=== PATIENT | male | born 1995 | race African-American/Black ===

== ENCOUNTER 2018-03-19 13:57 | Emergency (ER) | payer OTHER ==
[2018-03-19] MEDS ORDERED: NS 0.9% 1000 ML* 2,000 ML IV ONE (14:44)
[2018-03-19 14:57] LABS: ABS Basophils 0 10^3/ul (0-0.2); ABS Eosinophils 0 10^3/ul (0-0.6); ABS Monocytes 0.8 10^3/ul (0-0.8); ABS Neutrophils 8.3 10^3/ul (1.5-7.7); ABS Nucleated RBC 0 10^3/ul; Eosinophil % 0.2 % (0-6); Hematocrit 44 % (42-52); Hemoglobin 14.9 g/dl (14.0-18.0); Lymphocyte % 17.6 % (25-47); Mean Corpuscular HGB Conc 34 g/dl (31-36); Mean Corpuscular Hemoglobin 30 pg (27-31); Mean Corpuscular Volume 89 fL (80-94); Mean Platelet Volume 8.6 um3 (7.4-10.4); Nucleated Red Blood Cells % 0; Platelet Count 247 10^3/ul (150-450); Red Blood Count 4.98 10^6/ul (4.0-5.4); Red Cell Distribution Width 13 % (10.5-15); White Blood Count 11.2 10^3/ul (3.5-10.8)
--- NOTE | 2018-03-19 15:04 | RAD ---
INDICATION: Chest tightness. COMPARISON: There are no prior studies available for comparison. TECHNIQUE: A portable view of the chest was obtained. FINDINGS: Cardiac and mediastinal contours appear to be within normal limits. The lungs are clear. No pleural effusion or pneumothorax is seen. IMPRESSION: NO EVIDENCE FOR ACUTE DISEASE.
[2018-03-19 15:08] LABS: INR 1.02 (0.77-1.02)
[2018-03-19 15:24] LABS: EGFR Non-African American 102.3 (>60)
[2018-03-19 16:09] LABS: Urine Appearance Clear; Urine Blood Negative (Negative); Urine Color Yellow; Urine Ketones Negative (Negative); Urine Protein Negative (Negative); Urine Specific Gravity 1.023 (1.010-1.030); Urine Urobilinogen Negative (Negative)
--- NOTE | 2018-03-19 17:32 | ED ---
Louise Kwon Gabriel, scribed for Dano Regalado MD on 03/19/18 at 1442 . Substance Abuse/Use - HPI Summary HPI Summary: This patient is a 22 year old M BIBA to [facility] s/p K2 overdose that occurred at 0700 this morning. Pt is accompanied by guards. The patient rates the pain 3/10 in severity. Patient reports muscle spasms, weakness, left knee pain, tremors on movement, and chest pain. Pt states he current feels better than this morning , when he was seen in the clinic earlier today he had very little responsiveness. - History Of Current Complaint Chief Complaint: EDOverdose Stated Complaint: OVERDOSE Time Seen by Provider: 03/19/18 14:19 Hx Obtained From: Patient, Other: - guards Onset/Duration of Drug/ETOH Abuse: Hours Ingestion History: Type/Name Of Drug - K2 Overdose Characteristics: Inhalation Timing Of Abuse: Binge Use Severity Initially: Severe Severity Currently: Moderate Character: Stuporous Associated Signs And Symptoms: Other: - muscle spasms, weakness, left knee pain , tremors on movement, and chest pain. - Allergies/Home Medications Allergies/Adverse Reactions: Allergies Allergy/AdvReac Type Severity Reaction Status Date / Time No Known Allergies Allergy Verified 03/19/18 14:11 Home Medications: Home Medications NK [No Home Medications Reported] 03/19/18 [History Confirmed 03/19/18] PMH/Surg Hx/FS Hx/Imm Hx Cardiovascular History: Denies: Hx Angina, Hx Angioplasty, Hx Atrial Fibrillation, Hx Auto Implanted Cardiovert Defib Respiratory History: Denies: Hx Bronchopulmonary Dysplasia, Hx Chronic Bronchitis, Hx Chronic Obstructive Pulmonary Disease (COPD), Hx Cystic Fibrosis GI History: Denies: Hx Cirrhosis, Hx Crohn's Disease, Hx Diverticulosis History: Denies: Hx Acute Renal Failure, Hx Benign Prostatic Hyperplasia Musculoskeletal History: Denies: Hx Arthritis, Hx Rheumatoid Arthritis Psychiatric History: Reports: Hx Substance Abuse Infectious Disease History: No Infectious Disease History: Denies: Traveled Outside the [place] in Last 30 Days - Family History Known Family History: Positive: Hypertension, Diabetes Negative: Respiratory Disease, Seizure Disorder - Social History Occupation: Unemployed Lives: Dormitory/Roommates - [facility] Alcohol Use: Rare Hx Substance Use: Yes Substance Use Type: Reports: Synthetic Drugs Hx Tobacco Use: No Smoking Status (MU): Never Smoked Tobacco Review of Systems Positive: Chest Pain Positive: Other - left knee pain Neurological: Other - muscle spasms and tremors on movement Positive: Weakness Psychological: Other All Other Systems Reviewed And Are Negative: Yes Physical Exam - Summary Physical Exam Summary: General: well-appearing, no pain distress ,awake Skin: warm, color reflects adequate perfusion, dry Head: normal Eyes: EOMI, GUADALUPE ENT: normal Neck: supple, nontender Respiratory: CTA, breath sounds present Cardiovascular: RRR Abdomen: soft, nontender Bowel: present Musculoskeletal: tremulous when moving LE, TTP in medial left patella Neurological: normal, sensory/motor intact, A&O x3 Psychological: affect/mood appropriate Triage Information Reviewed: Yes Vital Signs On Initial Exam: Initial Vitals Temp Pulse Resp BP Pulse Ox 99.2 F 102 20 133/75 97 03/19/18 14:11 03/19/18 14:11 03/19/18 14:11 03/19/18 14:11 03/19/18 14:11 Vital Signs Reviewed: Yes Diagnostics - Vital Signs Vital Signs Temp Pulse Resp BP Pulse Ox 03/19/18 14:11 99.2 F 102 20 133/75 97 - Laboratory Lab Results: Lab Results 03/19/18 03/19/18 03/19/18 Range/Units 14:45 14:45 14:45 WBC 11.2 H (3.5-10.8) 10^3/ul RBC 4.98 (4.0-5.4) 10^6/ul Hgb 14.9 (14.0-18.0) g/dl Hct 44 (42-52) % MCV 89 (80-94) fL MCH 30 (27-31) pg MCHC 34 (31-36) g/dl RDW 13 (10.5-15) % Plt Count 247 (150-450) 10^3/ul MPV 8.6 (7.4-10.4) um3 Neut % (Auto) 74.2 (38-83) % Lymph % (Auto) 17.6 L (25-47) % Carlisle % (Auto) 7.6 H (0-7) % Eos % (Auto) 0.2 (0-6) % Baso % (Auto) 0.4 (0-2) % Absolute Neuts (auto) 8.3 H (1.5-7.7) 10^3/ul Absolute Lymphs (auto) 2.0 (1.0-4.8) 10^3/ul Absolute Monos (auto) 0.8 (0-0.8) 10^3/ul Absolute Eos (auto) 0 (0-0.6) 10^3/ul Absolute Basos (auto) 0 (0-0.2) 10^3/ul Absolute Nucleated RBC 0 10^3/ul Nucleated RBC % 0 INR (Anticoag Therapy) 1.02 (0.77-1.02) APTT 28.2 (26.0-36.3) seconds Sodium 139 (139-145) mmol/L Potassium 3.8 (3.5-5.0) mmol/L Chloride 104 (101-111) mmol/L Carbon Dioxide 24 (22-32) mmol/L Anion Gap 11 (2-11) mmol/L BUN 10 (6-24) mg/dL Creatinine 0.94 (0.67-1.17) mg/dL Est GFR ( Amer) 131.6 (>60) Est GFR (Non-Af Amer) 102.3 (>60) BUN/Creatinine Ratio 10.6 (8-20) Glucose 98 (70-100) mg/dL Lactic Acid (0.5-2.0) mmol/L Calcium 9.6 (8.6-10.3) mg/dL Magnesium 2.0 (1.9-2.7) mg/dL Total Bilirubin 0.70 (0.2-1.0) mg/dL AST 14 (13-39) U/L ALT 12 (7-52) U/L Alkaline Phosphatase 61 (34-104) U/L Total Creatine Kinase 98 (10-223) U/L CK-MB (CK-2) 2.5 (0.6-6.3) ng/mL Troponin I 0.00 (<0.04) ng/mL C-Reactive Protein < 1.00 (< 5.00) mg/L Total Protein 7.3 (6.4-8.9) g/dL Albumin 4.6 (3.2-5.2) g/dL Globulin 2.7 (2-4) g/dL Albumin/Globulin Ratio 1.7 (1-3) Lipase 24 (11.0-82.0) U/L TSH 3.21 (0.34-5.60) mcIU/mL Urine Color Urine Appearance Urine pH (5-9) Ur Specific [place] (1.010-1.030) Urine Protein (Negative) Urine Ketones (Negative) Urine Blood (Negative) Urine Nitrate (Negative) Urine Bilirubin (Negative) Urine Urobilinogen (Negative) Ur Leukocyte Esterase (Negative) Urine Glucose (Negative) Salicylates < 2.50 (<30) mg/dL Urine Opiates Screen (None Detect) Acetaminophen < 15 mcg/mL Ur Barbiturates Screen (None Detect) Ur Phencyclidine Scrn (None Detect) Ur Amphetamines Screen (None Detect) U Benzodiazepines Scrn (None Detect) Urine Cocaine Screen (None Detect) U Cannabinoids Screen (None Detect) Serum Alcohol < 10 (<10) mg/dL 03/19/18 03/19/18 03/19/18 Range/Units 14:45 15:52 15:52 WBC (3.5-10.8) 10^3/ul RBC (4.0-5.4) 10^6/ul Hgb (14.0-18.0) g/dl Hct (42-52) % MCV (80-94) fL MCH (27-31) pg MCHC (31-36) g/dl RDW (10.5-15) % Plt Count (150-450) 10^3/ul MPV (7.4-10.4) um3 Neut % (Auto) (38-83) % Lymph % (Auto) (25-47) % Carlisle % (Auto) (0-7) % Eos % (Auto) (0-6) % Baso % (Auto) (0-2) % Absolute Neuts (auto) (1.5-7.7) 10^3/ul Absolute Lymphs (auto) (1.0-4.8) 10^3/ul Absolute Monos (auto) (0-0.8) 10^3/ul Absolute Eos (auto) (0-0.6) 10^3/ul Absolute Basos (auto) (0-0.2) 10^3/ul Absolute Nucleated RBC 10^3/ul Nucleated RBC % INR (Anticoag Therapy) (0.77-1.02) APTT (26.0-36.3) seconds Sodium (139-145) mmol/L Potassium (3.5-5.0) mmol/L Chloride (101-111) mmol/L Carbon Dioxide (22-32) mmol/L Anion Gap (2-11) mmol/L BUN (6-24) mg/dL Creatinine (0.67-1.17) mg/dL Est GFR ( Amer) (>60) Est GFR (Non-Af Amer) (>60) BUN/Creatinine Ratio (8-20) Glucose (70-100) mg/dL Lactic Acid 1.3 (0.5-2.0) mmol/L Calcium (8.6-10.3) mg/dL Magnesium (1.9-2.7) mg/dL Total Bilirubin (0.2-1.0) mg/dL AST (13-39) U/L ALT (7-52) U/L Alkaline Phosphatase (34-104) U/L Total Creatine Kinase (10-223) U/L CK-MB (CK-2) (0.6-6.3) ng/mL Troponin I (<0.04) ng/mL C-Reactive Protein (< 5.00) mg/L Total Protein (6.4-8.9) g/dL Albumin (3.2-5.2) g/dL Globulin (2-4) g/dL Albumin/Globulin Ratio (1-3) Lipase (11.0-82.0) U/L TSH (0.34-5.60) mcIU/mL Urine Color Yellow Urine Appearance Clear Urine pH 7.0 (5-9) Ur Specific [place] 1.023 (1.010-1.030) Urine Protein Negative (Negative) Urine Ketones Negative (Negative) Urine Blood Negative (Negative) Urine Nitrate Negative (Negative) Urine Bilirubin Negative (Negative) Urine Urobilinogen Negative (Negative) Ur Leukocyte Esterase Negative (Negative) Urine Glucose Negative (Negative) Salicylates (<30) mg/dL Urine Opiates Screen None detected (None Detect) Acetaminophen mcg/mL Ur Barbiturates Screen None detected (None Detect) Ur Phencyclidine Scrn None detected (None Detect) Ur Amphetamines Screen None detected (None Detect) U Benzodiazepines Scrn None detected (None Detect) Urine Cocaine Screen None detected (None Detect) U Cannabinoids Screen None detected (None Detect) Serum Alcohol (<10) mg/dL Result Diagrams: 03/19/18 14:45 03/19/18 14:45 Lab Statement: Any lab studies that have been ordered have been reviewed, and results considered in the medical decision making process. - Radiology CXR Radiology Interpretation Completed By: Radiologist - , no evidence for acute disease ED physician has reviewed this radiology report. - EKG 14:56 Cardiac Rate: NL EKG Rhythm: Sinus Rhythm - at 81 BPM Ectopy: None EKG Interpretation: ST elevations probable early repolarization Course/Dx - Course Course Of Treatment: IMPROVED IN ED. DISCUSSED RESULTS WITH THE PATIENT. DISCHARGE BACK TO [facility], STABLE. RETURN IF WORSE. - Diagnoses Provider Diagnoses: Substance abuse Discharge - Sign-Out/Discharge Documenting (check all that apply): Discharge - Discharge Plan Condition: Stable Disposition: HOME Patient Education Materials: Cannabis Abuse (ED) Referrals: Earlene DOUGLASS,Kesha Serna [Primary Care Provider] - Additional Instructions: FOLLOW UP WITH YOUR DOCTOR. RETURN TO THE EMERGENCY DEPARTMENT FOR ANY WORSENING OF YOUR CONDITION OR QUESTIONS OR CONCERNS. - Billing Disposition and Condition Condition: STABLE Disposition: HOME The documentation as recorded by the Louise foss Gabriel accurately reflects the service I personally performed and the decisions made by me, Dano Regalado MD.
[2018-03-19 17:46] VITALS: BP 109/60
== END 2018-03-19 17:45 | disposition home or self-care (01) ==
LOC: ED 13:57
DX: F19.10 Other psychoactive substance abuse, uncomplicated (principal); R53.1 Weakness; M25.562 Pain in left knee; R07.9 Chest pain, unspecified
CPT/HCPCS: 36415; 71045; 80053; 80307; 80320; 80329; 81003; 82550; 82553; 83605; 83690; 83735; 84443; 84484; 85025; 85610; 85730; 86140; 93005; 96360; 99284; G0480

== ENCOUNTER 2018-03-22 14:01 | Inpatient (IN) | payer OTHER ==
[2018-03-22] MEDS ORDERED: Acetaminophen TAB* 325 MG PO ONE (16:00)
--- NOTE | 2018-03-22 16:19 | ED ---
Neurological HPI - HPI Summary HPI Summary: Patient is a 22-year-old male presenting from [address] [place] [address] with a possible K to overdose. He was seen 3 days ago in the ED for K2 overdose. Note below: This patient is a 22 year old M BIBA to [facility] s/p K2 overdose that occurred at 0700 this morning. Pt is accompanied by guards. The patient rates the pain 3/10 in severity. Patient reports muscle spasms, weakness, left knee pain, tremors on movement, and chest pain. Pt states he current feels better than this morning , when he was seen in the clinic earlier today he had very little responsiveness. Today he returns, brought in by ambulance with guards at bedside for continuing similar complaint of tremors, left upper leg pain and headache. He denies any K2 ingestion on this date. He has never had any of these symptoms prior to 3 days ago. Patient is a poor historian. Denies chest pain, shortness of breath. Headache is located in the frontal/parietal area in the most superior portion of his head. He denies any trauma. Headache is not worst of life. He describes the pain as an aching. Endorses upper leg pain but is unable to describe this. He continues to spasm throughout questioning. No known history of seizure activity. He has not taken any medication for relief. Denies any abdominal pain, nausea, vomiting, diarrhea. - History of Current Complaint Hx Obtained From: Patient Onset/Duration: Sudden Onset Timing: Constant Onset Severity: Moderate Current Severity: Moderate Seizure Severity: Moderate Neurological Deficit Location: Generalized Headache Location: Parietal (Right) Pain Intensity: 7 Pain Scale Used: 0-10 Numeric Character: Unable To Describe Alleviating: Rest Associated Signs and Symptoms: Positive: Decreased Level of Consciousness, Decreased Oral Intake. Negative: Tinnitus, Unsteady Gait, Confusion, Agitation , Loss of Consciousness, Impaired Speech, Numbness, Lightheadness, Neck Pain/ Stiffness, Chest Pain, Shortness of Breath TPA Considered: No <Allison Rosa - Last Filed: 03/22/18 16:27> <Jimbo Williamson - Last Filed: 03/23/18 02:35> - History of Current Complaint Chief Complaint: EDSubstanceAbuse Stated Complaint: OVERDOSE Time Seen by Provider: 03/22/18 14:09 - Allergy/Home Medications Allergies/Adverse Reactions: Allergies Allergy/AdvReac Type Severity Reaction Status Date / Time No Known Allergies Allergy Verified 03/19/18 14:11 PMH/Surg Hx/FS Hx/Imm Hx Previously Healthy: Yes Cardiovascular History: Reports: Other Cardiovascular Problems/Disorders - VALVUE PROBLEM Denies: Hx Angina, Hx Angioplasty, Hx Atrial Fibrillation, Hx Auto Implanted Cardiovert Defib Respiratory History: Denies: Hx Bronchopulmonary Dysplasia, Hx Chronic Bronchitis, Hx Chronic Obstructive Pulmonary Disease (COPD), Hx Cystic Fibrosis GI History: Denies: Hx Cirrhosis, Hx Crohn's Disease, Hx Diverticulosis History: Denies: Hx Acute Renal Failure, Hx Benign Prostatic Hyperplasia Musculoskeletal History: Denies: Hx Arthritis, Hx Rheumatoid Arthritis Psychiatric History: Reports: Hx Substance Abuse - Immunization History Hx Pertussis Vaccination: No Immunizations Up to Date: Unable to Obtain/Confirm Infectious Disease History: Yes Infectious Disease History: Denies: Traveled Outside the [place] in Last 30 Days - Family History Known Family History: Positive: Hypertension, Diabetes Negative: Respiratory Disease, Seizure Disorder - Social History Occupation: Unemployed Lives: [facility] Alcohol Use: Rare Hx Substance Use: Yes Substance Use Type: Reports: Synthetic Drugs Hx Tobacco Use: No Smoking Status (MU): Never Smoked Tobacco <Allison Rosa - Last Filed: 03/22/18 16:27> Review of Systems Constitutional: Negative Negative: Fever, Chills, Fatigue, Skin Diaphoresis Eyes: Negative Negative: Epistaxis, Dental Pain, Sore Throat, Ear Ache Negative: Palpitations, Chest Pain Negative: Shortness Of Breath, Cough Negative: Abdominal Pain, Vomiting, Diarrhea, Nausea Genitourinary: Negative Positive: no symptoms reported, see HPI Musculoskeletal: Negative Neurological: Other - tremors Positive: Headache. Negative: Weakness, Paresthesia, Numbness Psychological: Normal All Other Systems Reviewed And Are Negative: Yes <Allison Rosa - Last Filed: 03/22/18 16:27> Physical Exam Triage Information Reviewed: Yes Vital Signs On Initial Exam: Initial Vitals Pulse Resp BP Pulse Ox 87 13 128/73 98 03/22/18 14:12 03/22/18 14:12 03/22/18 14:12 03/22/18 14:12 Vital Signs Reviewed: Yes Appearance: Positive: Well-Appearing, Well-Nourished Skin: Positive: Warm, Skin Color Reflects Adequate Perfusion Head/Face: Positive: Normal Head/Face Inspection Eyes: Positive: EOMI, GUADALUPE, Conjunctiva Clear Neck: Positive: Supple, No Lymphadenopathy Respiratory/Lung Sounds: Positive: Clear to Auscultation, Breath Sounds Present Cardiovascular: Positive: RRR, Pulses are Symmetrical in both Upper and Lower Extremities Musculoskeletal: Positive: Normal, Strength/ROM Intact Neurological: Positive: Sensory/Motor Intact, Normal Gait - Not assessed, Unable to Assess Gait, Speech Normal. Negative: Receptive Aphasia, Expressive Aphasia, Facial Droop Psychiatric: Positive: Normal, Affect/Mood Appropriate AVPU Assessment: Alert <Allison Rosa - Last Filed: 03/22/18 16:27> Vital Signs On Initial Exam: Initial Vitals Pulse Resp BP Pulse Ox 87 13 128/73 98 03/22/18 14:12 03/22/18 14:12 03/22/18 14:12 03/22/18 14:12 <Jimbo Williamson - Last Filed: 03/23/18 02:35> Diagnostics - Vital Signs Vital Signs Temp Pulse Resp BP Pulse Ox 03/22/18 15:19 77 34 136/67 98 03/22/18 15:04 76 23 131/73 98 03/22/18 15:00 71 20 96 03/22/18 14:49 91 11 138/84 98 03/22/18 14:34 81 20 138/75 96 03/22/18 14:20 109 21 115/92 99 03/22/18 14:19 99.2 F 102 22 115/92 98 03/22/18 14:12 87 13 128/73 98 - Laboratory Lab Results: Lab Results 03/22/18 Range/Units 14:50 Troponin I 0.00 (<0.04) ng/mL Lab Statement: Any lab studies that have been ordered have been reviewed, and results considered in the medical decision making process. <Allison Rosa - Last Filed: 03/22/18 16:27> - Vital Signs Vital Signs Temp Pulse Resp BP Pulse Ox 03/22/18 18:04 16 112/75 03/22/18 18:00 18 03/22/18 17:49 13 125/71 03/22/18 17:37 13 03/22/18 17:34 79 10 116/65 97 03/22/18 17:19 84 13 110/61 98 03/22/18 17:04 77 19 122/59 95 03/22/18 17:00 84 15 96 03/22/18 16:49 35 146/79 03/22/18 16:34 71 13 131/69 95 03/22/18 16:04 88 22 150/88 99 03/22/18 16:00 81 15 97 03/22/18 15:49 84 11 111/77 98 03/22/18 15:34 80 13 135/70 96 03/22/18 15:19 77 34 136/67 98 03/22/18 15:04 76 23 131/73 98 03/22/18 15:00 71 20 96 03/22/18 14:49 91 11 138/84 98 03/22/18 14:34 81 20 138/75 96 03/22/18 14:20 109 21 115/92 99 03/22/18 14:19 99.2 F 102 22 115/92 98 03/22/18 14:12 87 13 128/73 98 - Laboratory Lab Results: Lab Results 03/22/18 03/22/18 03/22/18 Range/Units 14:50 16:04 16:04 WBC 10.5 (3.5-10.8) 10^3/ul RBC 4.91 (4.0-5.4) 10^6/ul Hgb 14.7 (14.0-18.0) g/dl Hct 44 (42-52) % MCV 90 (80-94) fL MCH 30 (27-31) pg MCHC 34 (31-36) g/dl RDW 13 (10.5-15) % Plt Count 265 (150-450) 10^3/ul MPV 8.9 (7.4-10.4) um3 Neut % (Auto) 69.6 (38-83) % Lymph % (Auto) 21.6 L (25-47) % Irwin % (Auto) 7.9 H (0-7) % Eos % (Auto) 0.5 (0-6) % Baso % (Auto) 0.4 (0-2) % Absolute Neuts (auto) 7.3 (1.5-7.7) 10^3/ul Absolute Lymphs (auto) 2.3 (1.0-4.8) 10^3/ul Absolute Monos (auto) 0.8 (0-0.8) 10^3/ul Absolute Eos (auto) 0.1 (0-0.6) 10^3/ul Absolute Basos (auto) 0 (0-0.2) 10^3/ul Absolute Nucleated RBC 0 10^3/ul Nucleated RBC % 0.1 ESR 3 (0-14) mm/Hr Sodium 143 (139-145) mmol/L Potassium 4.0 (3.5-5.0) mmol/L Chloride 109 (101-111) mmol/L Carbon Dioxide 23 (22-32) mmol/L Anion Gap 11 (2-11) mmol/L BUN 13 (6-24) mg/dL Creatinine 0.95 (0.67-1.17) mg/dL Est GFR ( Amer) 130.0 (>60) Est GFR (Non-Af Amer) 101.1 (>60) BUN/Creatinine Ratio 13.7 (8-20) Glucose 86 (70-100) mg/dL Lactic Acid (0.5-2.0) mmol/L Calcium 9.7 (8.6-10.3) mg/dL Total Bilirubin 1.20 H (0.2-1.0) mg/dL AST 11 L (13-39) U/L ALT 9 (7-52) U/L Alkaline Phosphatase 57 (34-104) U/L Total Creatine Kinase 102 (10-223) U/L Myoglobin 21.4 (17.4-105.7) ng/mL Troponin I 0.00 (<0.04) ng/mL C-Reactive Protein < 1.00 (< 5.00) mg/L Total Protein 7.2 (6.4-8.9) g/dL Albumin 4.5 (3.2-5.2) g/dL Globulin 2.7 (2-4) g/dL Albumin/Globulin Ratio 1.7 (1-3) Urine Color Urine Appearance Urine pH (5-9) Ur Specific [place] (1.010-1.030) Urine Protein (Negative) Urine Ketones (Negative) Urine Blood (Negative) Urine Nitrate (Negative) Urine Bilirubin (Negative) Urine Urobilinogen (Negative) Ur Leukocyte Esterase (Negative) Urine Glucose (Negative) 03/22/18 03/22/18 Range/Units 16:04 17:32 WBC (3.5-10.8) 10^3/ul RBC (4.0-5.4) 10^6/ul Hgb (14.0-18.0) g/dl Hct (42-52) % MCV (80-94) fL MCH (27-31) pg MCHC (31-36) g/dl RDW (10.5-15) % Plt Count (150-450) 10^3/ul MPV (7.4-10.4) um3 Neut % (Auto) (38-83) % Lymph % (Auto) (25-47) % Irwin % (Auto) (0-7) % Eos % (Auto) (0-6) % Baso % (Auto) (0-2) % Absolute Neuts (auto) (1.5-7.7) 10^3/ul Absolute Lymphs (auto) (1.0-4.8) 10^3/ul Absolute Monos (auto) (0-0.8) 10^3/ul Absolute Eos (auto) (0-0.6) 10^3/ul Absolute Basos (auto) (0-0.2) 10^3/ul Absolute Nucleated RBC 10^3/ul Nucleated RBC % ESR (0-14) mm/Hr Sodium (139-145) mmol/L Potassium (3.5-5.0) mmol/L Chloride (101-111) mmol/L Carbon Dioxide (22-32) mmol/L Anion Gap (2-11) mmol/L BUN (6-24) mg/dL Creatinine (0.67-1.17) mg/dL Est GFR ( Amer) (>60) Est GFR (Non-Af Amer) (>60) BUN/Creatinine Ratio (8-20) Glucose (70-100) mg/dL Lactic Acid 1.3 (0.5-2.0) mmol/L Calcium (8.6-10.3) mg/dL Total Bilirubin (0.2-1.0) mg/dL AST (13-39) U/L ALT (7-52) U/L Alkaline Phosphatase (34-104) U/L Total Creatine Kinase (10-223) U/L Myoglobin (17.4-105.7) ng/mL Troponin I (<0.04) ng/mL C-Reactive Protein (< 5.00) mg/L Total Protein (6.4-8.9) g/dL Albumin (3.2-5.2) g/dL Globulin (2-4) g/dL Albumin/Globulin Ratio (1-3) Urine Color Yellow Urine Appearance Clear Urine pH 6.0 (5-9) Ur Specific [place] 1.023 (1.010-1.030) Urine Protein Negative (Negative) Urine Ketones 1+ A (Negative) Urine Blood Negative (Negative) Urine Nitrate Negative (Negative) Urine Bilirubin Negative (Negative) Urine Urobilinogen Negative (Negative) Ur Leukocyte Esterase Negative (Negative) Urine Glucose Negative (Negative) Result Diagrams: 03/22/18 16:04 03/22/18 16:04 Lab Statement: Any lab studies that have been ordered have been reviewed, and results considered in the medical decision making process. <Jimbo Williamson - Last Filed: 03/23/18 02:35> Re-Evaluation - Re-Evaluation 1 Re-Evaluation Time: 18:22 - over Comment: 40 minutes S/P 1 mg Ativan PO: Patient still having intermittent tremors, no decline in symptoms. Patient alert, oriented, answers questions appropriately. No obvious distress. discussed pt case with dr ware neuro who recommended giving ativan 2mg iv. 2 Re-Evaluation Time: 19:44 Change: Improved Comment: Decreased frequency of intermittent tremors S/P Ativan 2mgIV. Discussed results with neuro Dr. Zamora who recommended admission to [facility]. Patient remains alert but drowsy. n Re-Evaluation Time: 18:22 - over Comment: 40 minutes S/P 1 mg Ativan PO: Patient still having intermittent tremors, no decline in symptoms. Patient alert, oriented, answers questions appropriately. No obvious distress. WIll discharge to shelter with instructions for observation <Jimbo Williamson - Last Filed: 03/23/18 02:35> Course/Dx - Course Course Of Treatment: During the course of treatment, the patient is evaluated for seizure-like activity since ingesting K2 to 3 days ago. Labs and urine obtained 3 days ago and all were unremarkable. [facility] Guards states that he has remained with muscle spasms and shaking episodes, fatigue, difficult to arouse times these 3 days. Patient endorses extreme fatigue and sleeping more than usual, approximately 14 hours per day. He continues to be a difficult and poor historian and difficult to obtain information and past medical history at this time. I've discussed the case with Dr. Regalado, who saw the patient 3 days ago. He recommends a CT brain, labs and a consult with neurology. <Allison Rosa - Last Filed: 03/22/18 16:27> - Physician Notifications Discussed Care Of Patient With: Dacia Ware - ADVISED TRIAL OF ANOTHER 2MG ATIVAN IV Time Discussed With Above Provider: 18:32 <Jimbo Williamson - Last Filed: 03/23/18 02:35> - Diagnoses Provider Diagnoses: Occasional tremors Discharge <Allison Rosa - Last Filed: 03/22/18 16:27> - Sign-Out/Discharge Documenting (check all that apply): Discharge - Billing Disposition and Condition Condition: STABLE [place] [facility] [place]Jimbo Williamson - Last Filed: 03/23/18 02:35> - Discharge Plan Condition: Stable Disposition: ADMITTED TO [facility]
[2018-03-22 16:40] LABS: ABS Basophils 0 10^3/ul (0-0.2); ABS Eosinophils 0.1 10^3/ul (0-0.6); ABS Lymphocytes 2.3 10^3/ul (1.0-4.8); ABS Monocytes 0.8 10^3/ul (0-0.8); ABS Neutrophils 7.3 10^3/ul (1.5-7.7); ABS Nucleated RBC 0 10^3/ul; Eosinophil % 0.5 % (0-6); Hematocrit 44 % (42-52); Hemoglobin 14.7 g/dl (14.0-18.0); Lymphocyte % 21.6 % (25-47); Mean Corpuscular HGB Conc 34 g/dl (31-36); Mean Corpuscular Hemoglobin 30 pg (27-31); Mean Corpuscular Volume 90 fL (80-94); Mean Platelet Volume 8.9 um3 (7.4-10.4); Nucleated Red Blood Cells % 0.1; Platelet Count 265 10^3/ul (150-450); Red Blood Count 4.91 10^6/ul (4.0-5.4); Red Cell Distribution Width 13 % (10.5-15); White Blood Count 10.5 10^3/ul (3.5-10.8)
[2018-03-22 17:02] LABS: EGFR Non-African American 101.1 (>60)
--- NOTE | 2018-03-22 17:06 | RAD ---
Indication: Seizure activity. CT of the brain was performed without IV contrast. Motion artifact degrades the images. Ventricular structures are midline. No midline shift is noted. The extra-axial spaces are unremarkable. No definite intracranial mass or hemorrhage is noted. Mastoid air cells and paranasal sinuses are unremarkable. IMPRESSION: Limited study due to motion artifact without obvious intracranial mass or hemorrhage.
[2018-03-22] MEDS ORDERED: LORazepam TAB(*) 1 MG PO ONE (17:15)
[2018-03-22 17:44] LABS: Urine Appearance Clear; Urine Blood Negative (Negative); Urine Color Yellow; Urine Ketones 1+ (Negative); Urine Protein Negative (Negative); Urine Specific Gravity 1.023 (1.010-1.030); Urine Urobilinogen Negative (Negative)
[2018-03-22] MEDS ORDERED: LORazepam INJ* 2 MG/ML 1 ML VIAL IV PUSH ONE (18:31)
[2018-03-22] MEDS: LORazepam INJ* 2 MG/ML 1 ML VIAL IV PUSH SCH (22:55)
[2018-03-22] MEDS: NS 0.9% 1000 ML* 1,000 ML IV SCH (22:55)
[2018-03-22] MEDS: Enoxaparin(*) 40 MG/0.4 ML SYR SUBCUT SCH (22:56)
--- NOTE | 2018-03-22 23:30 | HP ---
HISTORY AND PHYSICAL: DATE OF ADMISSION: 03/22/18 TIME OF ADMISSION: 9:30 p.m. CHIEF COMPLAINT: "Bad drugs." HISTORY OF PRESENT ILLNESS: This is a 22-year-old man who is presenting from alf after he was noted to be shaking since Saturday. He thought that he was ingesting K2, however, at this time he says he has "no idea" of what he took. He smoked the substance. He noticed weakness after he smoked the substance on Saturday, described as generalized fatigue and then noted several episodes of shaking that he is unable to fully describe to me. He believes the shaking is more on his left side and has been conscious throughout this whole time. He presented to the emergency department on the for similar complaints and was discharged back to [facility]. He says the shaking has continued since that time, gets worse with activity and better with rest and otherwise complains of a general headache that has improved over the past several days. He denies any drug use since Saturday, three days ago. He has no history of seizures, no history of head trauma, he is not forthcoming with other history and laughed at inappropriate times during my interview. The guards in his room offered no additional history. PAST MEDICAL HISTORY: None. PAST SURGICAL HISTORY: None. HOME MEDICATIONS: None. ALLERGIES: No known drug allergies. SOCIAL HISTORY: He currently resides at [facility]. REVIEW OF SYSTEMS: He denies fevers, chills, nausea, vomiting, blurry vision, double vision, change in hearing, numbness, tingling, falls, confusion, loss of consciousness, chest pain, or shortness of breath. PHYSICAL EXAMINATION GENERAL: Alert, young man, who appears his stated age, in no distress. He has an inappropriate affect. VITAL SIGNS: Blood pressure 136/78, heart rate 99, respiratory rate 25, pulse ox 100% on room air, temperature 99.2 HEENT: Pupils are 6 mm bilaterally and equally reactive to light. He has vertical nystagmus that fatigues after several seconds. Mucosa is moist with no pharyngeal exudates or erythema. NECK: No cervical or supraclavicular lymphadenopathy. LUNGS: Clear bilaterally. CHEST: Regular rate and rhythm. PMI nondisplaced. ABDOMEN: Soft, nontender, nondistended. No guarding or rebound. EXTREMITIES: No rashes. No track jaramillo. No edema. NEUROLOGIC: Strength is 5/5 in all extremities. He is oriented x3 and follows simple and complex commands. Fine tremor occurs when he extends his hands and is more notable in the left upper extremity. Fine tremor is also noted when he lifts his left leg. Sensation is intact. Proprioception is intact. He has no pronator drift. IMAGING: Brain CT limited studies revealed motion artifact without obvious intracranial mass or hemorrhage. ASSESSMENT AND PLAN: This is a 22-year-old man with no medical history, who was admitted for shaking after drug use. 1. Shaking and substance abuse. The substance ingested is unknown; however, it was presumed to be K2 that was smoked 4 days ago. It is possible that this is the presentation of a complex partial seizure, however, it is unusual that it would worsen with intention. It did, however, improve with Ativan in the emergency department. I have discussed this case with Neurology, who recommends continuing Ativan standing through the night, so I am ordering Ativan 1 mg q.6. We also discussed giving him Keppra if his symptoms continue throughout the night, so we will admit him for observation and he will be seen by Neurology in the morning. 3. DVT prophylaxis Lovenox. DISPOSITION: Admit to observation to the hospitalist service with a Neurology consult. CODE STATUS: He is full code. [id number]/[facility] #: [id number] MTDD
[2018-03-23] MEDS: LORazepam INJ* 2 MG/ML 1 ML VIAL IV PUSH SCH ×2 (04:22→09:12)
[2018-03-23] MEDS: NS 0.9% 1000 ML* 1,000 ML IV SCH ×3 (06:19→22:43)
--- NOTE | 2018-03-23 13:12 | CONS ---
NEUROLOGY CONSULTATION: DATE OF CONSULT: 03/23/18 REQUESTING PHYSICIAN: Alisa Molina DO REASON FOR CONSULT: Abnormal movements. HISTORY OF PRESENT ILLNESS: Bryan Chen is a 22-year-old man who is an inmate at [facility], who presented to the emergency department yesterday with complaints of persistent tremors. He had previously been seen in our emergency department on 03/19/18, at which point he admitted to smoking and per the ED record was having similar symptoms including generalized weakness and tremoring. With supportive care, he had reportedly improved and was discharged back to [facility], but on return to the emergency department yesterday indicates that he has had continued tremoring since the , which he reported to Dr. Molina, gets worse with activity and is better with rest. I had spoken with emergency department yesterday, who indicated that he was having recurrent episodes of fine tremoring which was generalized, but Dr. Molina's interview with the patient yesterday that the patient indicated this was more left sided. He had no alteration in awareness during these periods of shaking. He has denied to emergency department personnel as well as Dr. Molina any further ingestion of K2 or other drugs since Saturday. There is no reported prior history of head trauma or seizures. This morning upon my evaluation, the patient is not contributing to the history. He appears to be sedated in bed with his eyes closed and will arouse briefly to somewhat follow commands but did not answer any of my questions. One of the guards in his room has been here since 10:30 last night, indicates the patient was fully awake and alert until about 3 a.m. when he fell asleep. His shaking was reportedly minimal overnight but just before he got his morning dose of lorazepam, he did have some shaking in his lower extremities again. When I spoke with the emergency department last night, I had advised the patient be given 1 mg of IV Ativan which apparently had no effect and so then he received 2 mg of Ativan IV which did decrease the frequency and severity of his tremoring. After I spoke with Dr. Molina, I advised standing q.6 hours 1 mg Ativan IV which he has been receiving with doses given at 4:22 and 9:12 a.m. as well as 2255. In all, since 5 p.m. yesterday, he has received 6 mg. PAST MEDICAL AND SURGICAL HISTORY: None according to records. HOME MEDICATIONS: None. ALLERGIES: No known drug allergies. SOCIAL HISTORY: He is currently an inmate at [facility]. History of illicit drug use as described above. REVIEW OF SYSTEMS: Not able to be obtained secondary to the patient's condition. PHYSICAL EXAM: Vital Signs: Temperature 97.4, blood pressure 128/62, heart rate 62, and oxygen saturation 100% on room air. On general examination, he is lying in bed with blankets covering his head. When I uncovered him, he remains with his eyes closed, though he stirs a little bit. He did not answer questions for his name or how he was feeling. He did shake his head no when asked if he was in any pain. He grimaces to noxious stimulation and occasionally, has lower extremity tremors when his legs are passively moved, but otherwise does not have any abnormal movements. His heart is in a regular rate and rhythm with no murmurs, rubs, or gallops. His lungs were clear anteriorly and laterally to auscultation. He has no skin rashes. He has no joint swelling or erythema. On neurologic exam, he appears sleepy and sedated. As mentioned, he did not answer any questions or have any spontaneous speech. His eyes remain closed throughout the encounter except when the examiner manually opened them. He has roving eye movements which are conjugate. There is no clear sustained nystagmus. He was able to briefly follow my finger with his eyes manually opened and his eye movements appeared full. His face is symmetric. When asked to smile, he briefly grimaced more on the left side than the right side. However, he actively and strongly resists eye opening. The pupils are large at approximately 5 mm but equally reactive bilaterally. On motor examination, he appears to have normal tone in his upper extremities, but was resisting passive movement of his lower extremities, more so on the left side. He was able to sustain both arms antigravity equally. He did not sustain his right leg antigravity and actively resisted the examiner lifting his left leg antigravity. As mentioned with movement or palpation of his lower extremities, he has left greater than right irregular rapid tremoring which was variable in frequency and amplitude. He appeared to have intact noxious sensation in all 4 extremities. His reflexes were 2+ in the upper extremities, knees and ankles with mute toes bilaterally. Coordination testing could not be completed secondary to the patient's mental status. DIAGNOSTIC STUDIES/LAB DATA: His CBC and CMP were overall unremarkable aside from a slightly elevated total bilirubin of 1.2 and slightly low AST of 11. His total CK was 102. CRP and ESR were negative. Urinalysis was negative for infection and toxicology screen was normal. I reviewed his noncontrast head CT which was limited by significant motion artifact but showed no obvious intracranial lesions. IMPRESSION: A 22-year-old inmate at [facility] who presented to emergency department with reports of persistent tremoring associated with an overdose of K2 three days ago. He denied any further ingestion of illegal drugs during his evaluations, but given the presence of similar symptoms that he exhibited 3 days ago, I am suspicious of another ingestion here. Overall, his neurologic exam is nonfocal, though he may be oversedated from lorazepam at this point versus willingly not participating in the exam. I am going to stop his scheduled lorazepam and we will monitor him for improvement in his mental status. If he has persistent return of his tremoring movements, we could obtain EEG and/or MRI scan of the brain tomorrow. Again, I suspect this is related to toxicity/ingestion and supportive care will most likely be the treatment of choice here. Thank you for this consultation. [id number]/[facility] #: [id number] LIZY
--- NOTE | 2018-03-23 13:23 | PN ---
Subjective Date of Service: 03/23/18 Interval History: HOSPITALIST PROGRESS NOTE Patient seen and examined at bedside. When I arrived in his room, patient had his face covered with blankets and seemed to have some myoclonus on his left leg. When I introduced myself, his shaking seemed to get worse, resembling an intense whole body shiver. Family History: Unchanged from Admission Social History: Unchanged from Admission Past Medical History: Unchanged from Admission Objective Active Medications: Enoxaparin Sodium (Lovenox(*)) 40 mg SUBCUT Q24H [facility] Last Admin: 03/22/18 22:56 Dose: 40 mg Sodium Chloride (Ns 0.9% 1000 Ml*) 1,000 mls @ 125 mls/hr IV PER RATE [facility] Last Admin: 03/23/18 06:19 Dose: 125 mls/hr Vital Signs - 8 hr 03/23/18 03/23/18 03/23/18 05:29 07:45 09:12 Temperature 97.4 F Pulse Rate 62 Respiratory 16 16 16 Rate Blood Pressure 128/62 (mmHg) O2 Sat by Pulse 100 Oximetry 03/23/18 03/23/18 11:04 11:54 Temperature 98.0 F Pulse Rate 90 Respiratory 12 18 Rate Blood Pressure 121/62 (mmHg) O2 Sat by Pulse 100 Oximetry Oxygen Devices in Use Now: None Appearance: Young male lying in bed in NAD. Eyes: No Scleral Icterus, PERRLA Ears/Nose/Mouth/Throat: Mucous Membranes Moist Neck: Trachea Midline Respiratory: Symmetrical Chest Expansion and Respiratory Effort, Clear to Auscultation Cardiovascular: RRR - Normal S1 and S2 Neurological: NL Muscle Strength and Tone, - - Lethargic, but easily arousable, Ox3, MCNULTY Result Diagrams: 03/22/18 16:04 03/22/18 16:04 Assess/Plan/Problems-Billing Assessment: Mr Chen is a 22yo [facility] inmate who presented to ED x2 this week with c/o weakness and tremors after smoking a synthetic substance (?K2). - Patient Problems (1) Tremor due to substance abuse Comment: - Patient smoked something he thought was K2 on 03/19/18, developed weakness and tremors. He was evaluated in the ED and discharged back to [facility]. Returned 03/22 with similar complaints. Denies smoking the drug again, but his symptoms suggest exposure. - Neurology input appreciated - d/c lorazepam and continue supportive care. If tremors persist, recommended EEG and MRI brain. - Seizure precautions. - Neurochecks. (2) DVT prophylaxis Comment: - Lovenox. (3) Full code status Status and Disposition: Change to inpatient.
[2018-03-23] MEDS: Acetaminophen TAB* 325 MG PO PRN ×2 (14:24→22:43)
[2018-03-23] MEDS: Ibuprofen TAB* 600 MG PO PRN (17:30)
[2018-03-23] MEDS: Enoxaparin(*) 40 MG/0.4 ML SYR SUBCUT SCH (22:43)
[2018-03-24] MEDS: NS 0.9% 1000 ML* 1,000 ML IV SCH (07:54)
[2018-03-24] MEDS ORDERED: LORazepam INJ* 2 MG/ML 1 ML VIAL IV PUSH ONE (10:38)
[2018-03-24 13:08] LABS: EGFR Non-African American 123.2 (>60)
[2018-03-24] MEDS: Acetaminophen TAB* 325 MG PO PRN ×2 (13:18→21:38)
--- NOTE | 2018-03-24 14:13 | PN ---
Subjective Date of Service: 03/24/18 Interval History: HOSPITALIST PROGRESS NOTE Patient seen and examined at bedside. As per RN, "at 1000 pt slid off bed to the floor. The event was witnessed by guards. Per the guards he was attempting to get OOB to go to the bathroom and was told to wait for nursing staff, but pt ignored their commands and sat himself on the edge of the bed, proceeding to slide to the floor." No report of head trauma. When I entered the room, he was in bed with tremors on his legs, eyes were closed but he was following commands to use the urinal. Did not answer my questions. Family History: Unchanged from Admission Social History: Unchanged from Admission Past Medical History: Unchanged from Admission Objective Active Medications: Acetaminophen (Tylenol Tab*) 650 mg PO Q6H PRN PRN Reason: pain/fever Last Admin: 03/24/18 13:18 Dose: 650 mg Enoxaparin Sodium (Lovenox(*)) 40 mg SUBCUT Q24H [facility] Last Admin: 03/23/18 22:43 Dose: 40 mg Sodium Chloride (Ns 0.9% 1000 Ml*) 1,000 mls @ 125 mls/hr IV PER RATE [facility] Last Admin: 03/24/18 07:54 Dose: 125 mls/hr Ibuprofen (Motrin Tab*) 600 mg PO Q6H PRN PRN Reason: PAIN Last Admin: 03/23/18 17:30 Dose: 600 mg Vital Signs - 8 hr 03/24/18 03/24/18 03/24/18 07:05 07:58 10:06 Temperature 97.9 F 98.5 F Pulse Rate 66 96 Respiratory 16 12 16 Rate Blood Pressure 115/50 130/75 (mmHg) O2 Sat by Pulse 100 100 Oximetry 03/24/18 03/24/18 10:39 11:31 Temperature 98.3 F 99.3 F Pulse Rate 81 79 Respiratory 16 20 Rate Blood Pressure 125/64 130/62 (mmHg) O2 Sat by Pulse 100 99 Oximetry Oxygen Devices in Use Now: None Appearance: Young male lying in bed in NAD. Neck: Trachea Midline Respiratory: Symmetrical Chest Expansion and Respiratory Effort, Clear to Auscultation Cardiovascular: NL Sounds; No Murmurs; No JVD, RRR Neurological: - - Alert and awake, did not answer my questions, MCNULTY Result Diagrams: 03/22/18 16:04 03/24/18 12:16 Assess/Plan/Problems-Billing Assessment: Mr Chen is a 22yo [facility] inmate who presented to ED x2 this week with c/o weakness and tremors after smoking a synthetic substance (?K2). - Patient Problems (1) Tremor due to substance abuse Comment: - Patient smoked something he thought was K2 on 03/19/18, developed weakness and tremors. He was evaluated in the ED and discharged back to [facility]. Returned 03/22 with similar complaints. Denies smoking the drug again, but his symptoms suggest exposure. - Seizure precautions. - Neurochecks. - D/w Neurology - plan for EEG, MRI brain with/without contrast, MRI C-spine today. (2) DVT prophylaxis Comment: - Lovenox. (3) Full code status Status and Disposition: Inpatient.
[2018-03-24] MEDS: Ibuprofen TAB* 600 MG PO PRN (14:20)
[2018-03-24] MEDS ORDERED: Gadoteridol* (CONTRAST) 279.3 MG/ML 10 ML IV ONE (15:32)
--- NOTE | 2018-03-24 18:55 | PN ---
PROGRESS NOTE: DATE OF FOLLOWUP: 03/24/18. HISTORY: Overnight, the patient has continued to have some intermittent myoclonus mostly of his lower extremities. Nursing notes indicate that he was lying on the floor yesterday crying because he was afraid that he might never be able to walk again. This morning, he reportedly slipped off the bed onto the floor and had to be lifted back into bed because he was not able to bend his knees to help himself back up and into bed. On my evaluation, he is minimally interactive mostly keeping his eyes closed, appears to be in pain and seems to indicate the pain is in his head and his legs. He had not yet eaten breakfast as of my evaluation and the guards indicate that he has not tried to do so yet. HOSPITAL MEDICATIONS: 1. Tylenol 650 q.6 p.r.n. Last given at 2243. 2. Lovenox 40 mg q.24 hours. 3. Ibuprofen 600 mg q.6 p.r.n. Last given at 1730 yesterday. 4. Normal saline at 125 mL/hour. 5. His last dose of lorazepam was yesterday at 9 in the morning. PHYSICAL EXAMINATION: Vital Signs: Temperature 97.9, blood pressure 115/50, heart rate 66, oxygen saturation 100% on room air. On examination, he was initially resting in bed with his eyes closed and when I knocked on the door and approached, he seemed to alert, though kept his eyes closed and intermittently began having rapid tremoring of his lower extremities. He was either unwilling or unable to open his eyes to interact with me and when asked questions, he seems to stutter and have difficulty getting his words out, though he denies any pain other than in his head and in his legs. When asked to open his mouth and show me his tongue, he had great effort in trying to open his mouth and stated that he was having trouble in that he could not swallow. His hands and feet are sweaty. With his eyes opened manually, he appears to have full versions with no clear nystagmus though at times he directed his eyes downward when asked to look at the examiner's finger. His pupils are equal, round and reactive from 5 to 3 mm bilaterally. His face is symmetric. He does not follow commands to raise his arms but is unable to state why this is the case. When his arms were passively raised, he begins moaning in pain and has increased tremoring of his lower extremities. There is no clear lateralizing weakness. When asked to measurer, he does though weakly bilaterally. With any attempts at passive movement of his lower extremities, they are very stiff and he is not able to relax them. He has continuous irregular tremoring of the left greater than right lower extremity when touched. When he is at rest, this calms down. His reflexes are 2+ throughout with downgoing toes bilaterally. He seems to be tender to palpation over the left lateral aspect of his thigh. LABORATORY DATA: No new laboratory data has been done. IMPRESSION: A 22-year-old man who is an inmate of [facility] who presented with persistent tremoring of the lower extremities in the setting of K2 ingestions, which he indicates he has not taken since 03/19/18. He was seen for a similar presentation in the emergency department on 03/19/18, then returned to our hospital on 03/22/18. His movements seem to decrease but not entirely resolve on lorazepam. At this point, in addition to the lower extremity tremoring, he is complaining of a headache as well as leg pain, as well as trouble swallowing and he is minimally interactive with the exam for unclear reasons, though highly suspicious of volitional nature to his inability to cooperate. I will obtain MRI of the brain as well as cervical spine with and without contrast to evaluate for any evidence of ischemia or inflammation or demyelination, which could have been triggered by a toxic ingestion. In addition, because of the presence of the myoclonus and the association of K2 with seizures at times, we will obtain EEG. I will pretreat him with 2 mg of lorazepam in preparation for the MRI scan. I have spoken with his nurse about this. [id number]/[facility] #: [id number] [facility] CENTERBerenice
[2018-03-24] MEDS: Enoxaparin(*) 40 MG/0.4 ML SYR SUBCUT SCH (21:27)
--- NOTE | 2018-03-24 22:01 | EEG ---
ELECTROENCEPHALOGRAPHY: DATE OF STUDY: 03/24/18 ORDERING PHYSICIAN: Dacia Ware MD CLINICAL PROBLEM: This is a 22-year-old man, who is an inmate at [facility] and was brought in with lower extremity tremors since he ingested K2 on 03/19/18. He also complains of headache and leg woodrow n. He has had variable fluctuations in his mental status where he is sometimes not interactive with staff and otherwise awake and interactive. EEG is requested to evaluate for epileptiform abnormaliti es. MEDICATIONS: 1. Motrin p.r.n. 2. Tylenol p.r.n. 3. Lovenox. REPORT: The waking background showed appropriate organization with clearly defined anterior to poste rior voltage and frequency gradients. There was a well-defined posterior dominant rhythm of 9 Hz, wh ich was symmetrical and showed normal reactivity. Anteriorly, there was an expected pattern of lower voltage, irregular, mixed faster frequencies. The patient did not become drowsy during the study. Hyperventilation and photic stimulation were not performed. The patient experienced multiple brief episodes of tremoring, which often involved his lower extremit ies greater than his upper extremities. There was no change in the change in the EEG with these epis odes. Throughout the recording, there were no epileptiform discharges, focal features, paroxysmal features, or significant interhemispheric asymmetries. CLINICAL IMPRESSION: This is a normal waking EEG. There are no epileptiform abnormalities. The pat ient experienced multiple episodes of whole body tremoring, which are not associated with any change in the EEG. [id number]/[facility] #: [id number]
[2018-03-25] MEDS: Ibuprofen TAB* 600 MG PO PRN (03:34)
[2018-03-25] MEDS: Acetaminophen TAB* 325 MG PO PRN ×2 (05:02→18:03)
--- NOTE | 2018-03-25 09:05 | RAD ---
Indication: Ketamine ingestion. Image Sequences: Sagittal and axial T1, axial T2, FLAIR, diffusion and susceptibility weighted images of the brain were obtained. Fifteen mL of ProHance was injected and postcontrast axial, coronal and sagittal T1-weighted images were repeated. Ventricular structures are midline. No midline shift is noted. The extra-axial spaces are unremarkable. There is no evidence of intracranial mass or hemorrhage. No other high or low signal lesions are identified. Specifically on the FLAIR images, no evidence of increased signal is noted in the basal ganglia or thalamus. Postcontrast images demonstrate no evidence of abnormal enhancement. Mastoid air cells and paranasal sinuses are otherwise unremarkable. Susceptibility weighted images demonstrate no evidence of susceptibility weighted artifact. IMPRESSION: No intracranial lesion is identified. No abnormally enhancing lesions are noted.
--- NOTE | 2018-03-25 18:37 | PN ---
Subjective Date of Service: 03/25/18 Interval History: no overnight events, says he is too sleepy to talk with me this morning. he denies pain but otherwise will not answer my questions. Family History: Unchanged from Admission Social History: Unchanged from Admission Past Medical History: Unchanged from Admission Objective Active Medications: Acetaminophen (Tylenol Tab*) 650 mg PO Q6H PRN PRN Reason: pain/fever Last Admin: 03/25/18 18:03 Dose: 650 mg Enoxaparin Sodium (Lovenox(*)) 40 mg SUBCUT Q24H SARA Last Admin: 03/24/18 21:27 Dose: 40 mg Ibuprofen (Motrin Tab*) 600 mg PO Q6H PRN PRN Reason: PAIN Last Admin: 03/25/18 03:34 Dose: 600 mg Vital Signs - 8 hr 03/25/18 11:53 Temperature 98.3 F Pulse Rate 69 Respiratory 18 Rate Blood Pressure 104/54 (mmHg) O2 Sat by Pulse 100 Oximetry Oxygen Devices in Use Now: None Appearance: awakens to voice, falls asleep quickly, no distress Eyes: No Scleral Icterus, PERRLA Ears/Nose/Mouth/Throat: NL Teeth, Lips, Gums Neck: NL Appearance and Movements; NL JVP Respiratory: Symmetrical Chest Expansion and Respiratory Effort Abdominal: NL Sounds; No Tenderness; No Distention Extremities: No Edema Skin: No Rash or Ulcers Neurological: - - no nystagmus. tremor begins when I move his extremities. he does not voluntarily move his extremities. DTRs are 2+ b/l. tremor resolves when he is at rest. worsens when I ask him to sit up or roll onto his side. Result Diagrams: 03/22/18 16:04 03/24/18 12:16 Additional Lab and Data: Lab Results 03/22/18 03/22/18 03/22/18 Range/Units 14:50 16:04 16:04 WBC 10.5 (3.5-10.8) 10^3/ul RBC 4.91 (4.0-5.4) 10^6/ul Hgb 14.7 (14.0-18.0) g/dl Hct 44 (42-52) % MCV 90 (80-94) fL MCH 30 (27-31) pg MCHC 34 (31-36) g/dl RDW 13 (10.5-15) % Plt Count 265 (150-450) 10^3/ul MPV 8.9 (7.4-10.4) um3 Neut % (Auto) 69.6 (38-83) % Lymph % (Auto) 21.6 L (25-47) % [place] % (Auto) 7.9 H (0-7) % Eos % (Auto) 0.5 (0-6) % Baso % (Auto) 0.4 (0-2) % Absolute Neuts (auto) 7.3 (1.5-7.7) 10^3/ul Absolute Lymphs (auto) 2.3 (1.0-4.8) 10^3/ul Absolute Monos (auto) 0.8 (0-0.8) 10^3/ul Absolute Eos (auto) 0.1 (0-0.6) 10^3/ul Absolute Basos (auto) 0 (0-0.2) 10^3/ul Absolute Nucleated RBC 0 10^3/ul Nucleated RBC % 0.1 ESR 3 (0-14) mm/Hr Sodium 143 (139-145) mmol/L Potassium 4.0 (3.5-5.0) mmol/L Chloride 109 (101-111) mmol/L Carbon Dioxide 23 (22-32) mmol/L Anion Gap 11 (2-11) mmol/L BUN 13 (6-24) mg/dL Creatinine 0.95 (0.67-1.17) mg/dL Est GFR ( Amer) 130.0 (>60) Est GFR (Non-Af Amer) 101.1 (>60) BUN/Creatinine Ratio 13.7 (8-20) Glucose 86 (70-100) mg/dL Lactic Acid (0.5-2.0) mmol/L Calcium 9.7 (8.6-10.3) mg/dL Total Bilirubin 1.20 H (0.2-1.0) mg/dL AST 11 L (13-39) U/L ALT 9 (7-52) U/L Alkaline Phosphatase 57 (34-104) U/L Total Creatine Kinase 102 (10-223) U/L Myoglobin 21.4 (17.4-105.7) ng/mL Troponin I 0.00 (<0.04) ng/mL C-Reactive Protein < 1.00 (< 5.00) mg/L Total Protein 7.2 (6.4-8.9) g/dL Albumin 4.5 (3.2-5.2) g/dL Globulin 2.7 (2-4) g/dL Albumin/Globulin Ratio 1.7 (1-3) Urine Color Urine Appearance Urine pH (5-9) Ur Specific [place] (1.010-1.030) Urine Protein (Negative) Urine Ketones (Negative) Urine Blood (Negative) Urine Nitrate (Negative) Urine Bilirubin (Negative) Urine Urobilinogen (Negative) Ur Leukocyte Esterase (Negative) Urine Glucose (Negative) 03/22/18 03/22/18 Range/Units 16:04 17:32 WBC (3.5-10.8) 10^3/ul RBC (4.0-5.4) 10^6/ul Hgb (14.0-18.0) g/dl Hct (42-52) % MCV (80-94) fL MCH (27-31) pg MCHC (31-36) g/dl RDW (10.5-15) % Plt Count (150-450) 10^3/ul MPV (7.4-10.4) um3 Neut % (Auto) (38-83) % Lymph % (Auto) (25-47) % [place] % (Auto) (0-7) % Eos % (Auto) (0-6) % Baso % (Auto) (0-2) % Absolute Neuts (auto) (1.5-7.7) 10^3/ul Absolute Lymphs (auto) (1.0-4.8) 10^3/ul Absolute Monos (auto) (0-0.8) 10^3/ul Absolute Eos (auto) (0-0.6) 10^3/ul Absolute Basos (auto) (0-0.2) 10^3/ul Absolute Nucleated RBC 10^3/ul Nucleated RBC % ESR (0-14) mm/Hr Sodium (139-145) mmol/L Potassium (3.5-5.0) mmol/L Chloride (101-111) mmol/L Carbon Dioxide (22-32) mmol/L Anion Gap (2-11) mmol/L BUN (6-24) mg/dL Creatinine (0.67-1.17) mg/dL Est GFR ( Amer) (>60) Est GFR (Non-Af Amer) (>60) BUN/Creatinine Ratio (8-20) Glucose (70-100) mg/dL Lactic Acid 1.3 (0.5-2.0) mmol/L Calcium (8.6-10.3) mg/dL Total Bilirubin (0.2-1.0) mg/dL AST (13-39) U/L ALT (7-52) U/L Alkaline Phosphatase (34-104) U/L Total Creatine Kinase (10-223) U/L Myoglobin (17.4-105.7) ng/mL Troponin I (<0.04) ng/mL C-Reactive Protein (< 5.00) mg/L Total Protein (6.4-8.9) g/dL Albumin (3.2-5.2) g/dL Globulin (2-4) g/dL Albumin/Globulin Ratio (1-3) Urine Color Yellow Urine Appearance Clear Urine pH 6.0 (5-9) Ur Specific [place] 1.023 (1.010-1.030) Urine Protein Negative (Negative) Urine Ketones 1+ A (Negative) Urine Blood Negative (Negative) Urine Nitrate Negative (Negative) Urine Bilirubin Negative (Negative) Urine Urobilinogen Negative (Negative) Ur Leukocyte Esterase Negative (Negative) Urine Glucose Negative (Negative) Microbiology and Other Data: Microbiology 03/22/18 22:40 Nasal Screen MRSA (PCR)(DIONISIO) - Final Nasal Mrsa Not Detected Assess/Plan/Problems-Billing Assessment: Mr Chen is a 22yo [facility] inmate who presented to ED x2 this week with c/o weakness and tremors after smoking a synthetic substance (?K2). - Patient Problems (1) Tremor due to substance abuse Current Visit: Yes Status: Acute Code(s): R25.1 - TREMOR, UNSPECIFIED SNOMED Code(s): 722297803 Comment: Patient smoked something he thought was K2 on 03/19/18, developed weakness and tremors. He was evaluated in the ED and discharged back to [facility]. Returned 03/22 with similar complaints. Denies smoking the drug again, but his symptoms suggest exposure. Seizure precautions. Neurochecks. Awaiting MRI c-spine May need LP if MRI is unrevealing (2) DVT prophylaxis Current Visit: Yes Status: Acute Code(s): BAS3418 - SNOMED Code(s): 728300491 Comment: Eileen calvin (3) Full code status Current Visit: Yes Status: Acute Code(s): Z78.9 - OTHER SPECIFIED HEALTH STATUS SNOMED Code(s): 909538338 Status and Disposition: Inpatient.
[2018-03-25] MEDS ORDERED: traMADol TAB* 50 MG PO ONE (19:57)
--- NOTE | 2018-03-25 21:25 | PN ---
PROGRESS NOTE: DATE OF FOLLOWUP: 03/25/18 HISTORY: No acute overnight events. Patient has continued to have some intermittent myoclonus, though overall it appears improved. Today, he tells me that he continues to have some headache and some leg pain. Further, he shared that he is supposed to be getting out of long-term in 2 weeks and will be going home with family in [place]. When I asked if he is nervous about this, he says no, but he begins crying saying that he is worried that he is not going to be able to walk when he goes home. HOSPITAL MEDICATIONS: 1. Tylenol 650 q.6 p.r.n. 2. Lovenox. 3. Ibuprofen 600 q.6 p.r.n. PHYSICAL EXAMINATION: Vital Signs: Temperature 98.3, blood pressure 104/54, heart rate 69, oxygen saturation 100% on room air. He was sleeping when I initially entered the room and he woke with a startle and then had some intermittent shaking of the lower extremities. He is again difficult to understand, mostly keeps his eyes closed when I am trying to interact with him and even upon asking him to do things such as open his eyes or raise his arms, he does so only partially and with great effort. As mentioned, toward the end of our encounter, he began crying. On cranial nerve exam, the pupils are equal, round, and reactive from 5 to 3 mm bilaterally. Versions are full without nystagmus. Iglesias are full to threat. His face is symmetric. Hearing is intact to voice. The tongue protrudes in the midline. On motor examination, his arms are antigravity but as mentioned, he does not readily follow commands. When asked to raise either of his lower extremities, he has irregular shaking left greater than right and positive Craig sign in both lower extremities. His reflexes are 2+ throughout with downgoing toes. Sensation is intact to pinprick throughout. DATA: His repeat CMP from yesterday showed a normal CK of 93, total protein slightly low at 6.3 and nonfasting glucose of 109. His liver functions are normal aside from a slightly low AST of 11. His brain MRI was personally reviewed and is a normal study. I spoke with Radiology because his C-spine MRI was apparently done at the same time, but does not appear in [facility] for review. Apparently, they are waiting on Dr. Kc to sign off on the report, but I discussed with Radiology that typically we are able to view these images prior to them being finalized by the radiologist. They are currently working on figuring out why these images are not viewable. IMPRESSION: A 22-year-old man who is an inmate at [facility] and presented with persistent irregular tremoring mostly of the lower extremities in the setting of K2 ingestion last week. His brain MRI and blood work has been unremarkable. Similarly, his EEG was unremarkable. I am trying to review the C- spine images, but anticipate that those will also be normal. I discussed with him that at this point his nervous system appears healthy and the only other testing I could think of to recommend to rule out any possible inflammation secondary to ingestion of these substances would be lumbar puncture. If the C- spine MRI is normal, then we should proceed with LP, sending for usual studies just looking for any signs of elevated white blood cell counts or protein. Given his exam and that he shared today that he is supposed to be getting out of long-term in the next couple of weeks, I think this is a functional problem and he may have some worries surrounding getting out of long-term and reintegrating with his family, which could be manifesting in these neurological symptoms. In that case, I would recommend physical therapy and reassured him that I do believe that he will walk again and it could be a very short period of time that he is doing so. [id number]/[facility] #: [id number] LIZY
--- NOTE | 2018-03-25 21:31 | RAD ---
Indication: Left leg edema. Duplex Doppler sonography of the deep venous system of the left lower extremity deep venous system was performed. Bilaterally the common femoral veins appear patent and compressible. Left proximal greater saphenous vein, proximal deep femoral vein, femoral vein, popliteal vein, posterior tibial veins and peroneal veins appear patent and compressible. IMPRESSION: NO EVIDENCE OF DEEP VENOUS THROMBOSIS IS IDENTIFIED.
--- NOTE | 2018-03-25 21:31 | RAD ---
Indication: Pain in the left lower extremity. 2 views of left tibia and fibula and straight no fracture. No other bone or joint abnormality is noted. IMPRESSION: No fracture of the left tibia or fibula is noted.
[2018-03-25] MEDS: Enoxaparin(*) 40 MG/0.4 ML SYR SUBCUT SCH (21:38)
[2018-03-26] MEDS: Ibuprofen TAB* 600 MG PO PRN (11:38)
--- NOTE | 2018-03-26 14:33 | RAD ---
Indication: K to ingestion, lower and upper extremity myoclonus. Image sequences: Sagittal T1, T2, STIR, axial gradient echo and T2-weighted images were obtained. The vertebral bodies appear normal in height. Normal bone marrow signal is noted. Disc desiccation at C2-C3, C4-C5 and C5-C6 is noted. No focal protrusion is noted. No evidence of abnormal signal within the cord is noted. All the intervertebral foramen appear patent. Motion artifact noted on some images. IMPRESSION: Multilevel degenerative disc disease without evidence of focal protrusion. No evidence of cervical spinal cord abnormal signal.
[2018-03-26] MEDS: Acetaminophen TAB* 325 MG PO PRN ×2 (15:10→20:27)
--- NOTE | 2018-03-26 15:41 | PN ---
Subjective Date of Service: 03/26/18 Interval History: no overnight events. he is not cooperative with my exam and mostly moans and says he has pain. on further questioning, the pain is mostly in his muscles and in his legs. it occurs with any lower extremity movement. he lies in bed with a washcloth over his head but denies headache, blurry vision, dizziness. he thinks the shaking is a little better Family History: Unchanged from Admission Social History: Unchanged from Admission Past Medical History: Unchanged from Admission Objective Active Medications: Acetaminophen (Tylenol Tab*) 650 mg PO Q6H PRN PRN Reason: pain/fever Last Admin: 03/26/18 15:10 Dose: 650 mg Ibuprofen (Motrin Tab*) 600 mg PO Q6H PRN PRN Reason: PAIN Last Admin: 03/26/18 11:38 Dose: 600 mg Polyethylene Glycol/Electrolytes (Miralax*) 17 gm PO DAILY PRN PRN Reason: CONSTIPATION Vital Signs - 8 hr 03/26/18 03/26/18 08:00 08:14 Temperature 97.9 F Pulse Rate 67 Respiratory 16 19 Rate Blood Pressure 128/69 (mmHg) O2 Sat by Pulse 100 Oximetry Oxygen Devices in Use Now: None Appearance: alerts to voice, nontoxic, no distress Eyes: No Scleral Icterus Ears/Nose/Mouth/Throat: NL Teeth, Lips, Gums Neck: - - no nuchal rigidity Respiratory: Symmetrical Chest Expansion and Respiratory Effort Cardiovascular: NL Sounds; No Murmurs; No JVD, RRR Abdominal: NL Sounds; No Tenderness; No Distention Lymphatic: No Cervical Adenopathy Extremities: No Edema Skin: No Rash or Ulcers Neurological: - - generalized shaking whenever I move an extremity, but none at rest. he moans when I move his legs and resists moving them actively. Result Diagrams: 03/22/18 16:04 03/24/18 12:16 Additional Lab and Data: Lab Results 03/22/18 03/22/18 03/22/18 Range/Units 14:50 16:04 16:04 WBC 10.5 (3.5-10.8) 10^3/ul RBC 4.91 (4.0-5.4) 10^6/ul Hgb 14.7 (14.0-18.0) g/dl Hct 44 (42-52) % MCV 90 (80-94) fL MCH 30 (27-31) pg MCHC 34 (31-36) g/dl RDW 13 (10.5-15) % Plt Count 265 (150-450) 10^3/ul MPV 8.9 (7.4-10.4) um3 Neut % (Auto) 69.6 (38-83) % Lymph % (Auto) 21.6 L (25-47) % [place] % (Auto) 7.9 H (0-7) % Eos % (Auto) 0.5 (0-6) % Baso % (Auto) 0.4 (0-2) % Absolute Neuts (auto) 7.3 (1.5-7.7) 10^3/ul Absolute Lymphs (auto) 2.3 (1.0-4.8) 10^3/ul Absolute Monos (auto) 0.8 (0-0.8) 10^3/ul Absolute Eos (auto) 0.1 (0-0.6) 10^3/ul Absolute Basos (auto) 0 (0-0.2) 10^3/ul Absolute Nucleated RBC 0 10^3/ul Nucleated RBC % 0.1 ESR 3 (0-14) mm/Hr Sodium 143 (139-145) mmol/L Potassium 4.0 (3.5-5.0) mmol/L Chloride 109 (101-111) mmol/L Carbon Dioxide 23 (22-32) mmol/L Anion Gap 11 (2-11) mmol/L BUN 13 (6-24) mg/dL Creatinine 0.95 (0.67-1.17) mg/dL Est GFR ( Amer) 130.0 (>60) Est GFR (Non-Af Amer) 101.1 (>60) BUN/Creatinine Ratio 13.7 (8-20) Glucose 86 (70-100) mg/dL Lactic Acid (0.5-2.0) mmol/L Calcium 9.7 (8.6-10.3) mg/dL Total Bilirubin 1.20 H (0.2-1.0) mg/dL AST 11 L (13-39) U/L ALT 9 (7-52) U/L Alkaline Phosphatase 57 (34-104) U/L Total Creatine Kinase 102 (10-223) U/L Myoglobin 21.4 (17.4-105.7) ng/mL Troponin I 0.00 (<0.04) ng/mL C-Reactive Protein < 1.00 (< 5.00) mg/L Total Protein 7.2 (6.4-8.9) g/dL Albumin 4.5 (3.2-5.2) g/dL Globulin 2.7 (2-4) g/dL Albumin/Globulin Ratio 1.7 (1-3) Urine Color Urine Appearance Urine pH (5-9) Ur Specific [place] (1.010-1.030) Urine Protein (Negative) Urine Ketones (Negative) Urine Blood (Negative) Urine Nitrate (Negative) Urine Bilirubin (Negative) Urine Urobilinogen (Negative) Ur Leukocyte Esterase (Negative) Urine Glucose (Negative) 03/22/18 03/22/18 Range/Units 16:04 17:32 WBC (3.5-10.8) 10^3/ul RBC (4.0-5.4) 10^6/ul Hgb (14.0-18.0) g/dl Hct (42-52) % MCV (80-94) fL MCH (27-31) pg MCHC (31-36) g/dl RDW (10.5-15) % Plt Count (150-450) 10^3/ul MPV (7.4-10.4) um3 Neut % (Auto) (38-83) % Lymph % (Auto) (25-47) % [place] % (Auto) (0-7) % Eos % (Auto) (0-6) % Baso % (Auto) (0-2) % Absolute Neuts (auto) (1.5-7.7) 10^3/ul Absolute Lymphs (auto) (1.0-4.8) 10^3/ul Absolute Monos (auto) (0-0.8) 10^3/ul Absolute Eos (auto) (0-0.6) 10^3/ul Absolute Basos (auto) (0-0.2) 10^3/ul Absolute Nucleated RBC 10^3/ul Nucleated RBC % ESR (0-14) mm/Hr Sodium (139-145) mmol/L Potassium (3.5-5.0) mmol/L Chloride (101-111) mmol/L Carbon Dioxide (22-32) mmol/L Anion Gap (2-11) mmol/L BUN (6-24) mg/dL Creatinine (0.67-1.17) mg/dL Est GFR ( Amer) (>60) Est GFR (Non-Af Amer) (>60) BUN/Creatinine Ratio (8-20) Glucose (70-100) mg/dL Lactic Acid 1.3 (0.5-2.0) mmol/L Calcium (8.6-10.3) mg/dL Total Bilirubin (0.2-1.0) mg/dL AST (13-39) U/L ALT (7-52) U/L Alkaline Phosphatase (34-104) U/L Total Creatine Kinase (10-223) U/L Myoglobin (17.4-105.7) ng/mL Troponin I (<0.04) ng/mL C-Reactive Protein (< 5.00) mg/L Total Protein (6.4-8.9) g/dL Albumin (3.2-5.2) g/dL Globulin (2-4) g/dL Albumin/Globulin Ratio (1-3) Urine Color Yellow Urine Appearance Clear Urine pH 6.0 (5-9) Ur Specific [place] 1.023 (1.010-1.030) Urine Protein Negative (Negative) Urine Ketones 1+ A (Negative) Urine Blood Negative (Negative) Urine Nitrate Negative (Negative) Urine Bilirubin Negative (Negative) Urine Urobilinogen Negative (Negative) Ur Leukocyte Esterase Negative (Negative) Urine Glucose Negative (Negative) Microbiology and Other Data: Microbiology 03/22/18 22:40 Nasal Screen MRSA (PCR)(DIONISIO) - Final Nasal Mrsa Not Detected Assess/Plan/Problems-Billing Assessment: Mr Chen is a 22yo [facility] inmate who presented to ED x2 this week with c/o weakness and tremors after smoking a synthetic substance (?K2). - Patient Problems (1) Toxic encephalopathy Current Visit: Yes Status: Acute Code(s): G92 - TOXIC ENCEPHALOPATHY SNOMED Code(s): 99876387 Comment: likely due to ?K2 ingestion (unknown substance, he thought it was K2 ) MRI brain and c-spine were unremarkable his neuro examination fits no neurologic disorder that I know of, however I appreciate neurology input. this raises the question of a somatoform disorder or conversion disorder, but since these are diagnoses of exclusion, we will proceed with the LP tomorrow. PT consult for ambulatory dysfunction (2) DVT prophylaxis Current Visit: Yes Status: Acute Code(s): MHJ7856 - SNOMED Code(s): 755992972 Comment: on hold for LP tomorrow (3) Full code status Current Visit: Yes Status: Acute Code(s): Z78.9 - OTHER SPECIFIED HEALTH STATUS SNOMED Code(s): 769318046 Status and Disposition: Inpatient.
--- NOTE | 2018-03-26 20:33 | PN ---
PROGRESS NOTE: DATE OF FOLLOWUP: 03/26/18 HISTORY: No acute overnight events. Bryan is overall unchanged. He tells me today that every time he thinks he is going to get better, he starts to feel worse again. He is now reporting pain in his calves, which he says began yesterday. To investigate this, lower extremity Doppler's were ordered as well as an x-ray of the left leg. He also tells me that he has not had a bowel movement in several days. MEDICATIONS: Reviewed include: 1. Tylenol and Motrin p.r.n. 2. He received x1 dose of tramadol last night. PHYSICAL EXAMINATION: Vital Signs: Temperature 97.9, blood pressure 128/69, heart rate 67, and oxygen saturation 100% on room air. On general exam, Bryan was initially asleep with the covers over his head when I entered the room. He woke with a start when I called his name. His speech was more clear and not as slow as in previous days. He still tended to keep his eyes either shut or squinted, though denies any pain or light sensitivity in his eyes. His versions are full without any nystagmus. His face has full strength and symmetric. On motor examination, he has antigravity strength in the upper extremities, but preferred to stay on his right side rather than moving on to his back for a full exam. 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 He continues to be unable to lift his legs off the bed and has left greater than right extremity irregular shaking when asked to move his legs. He also grunts in pain continuously when his legs are tremoring. He indicates the pain is in his left quadriceps. Palpation of his leg there seems to reveal normal musculature, which is contracted normally with activity of the muscle. He is denying any tenderness to palpation of his calves bilaterally. His shaking increases with passive movement of his lower extremities. He continues to have Craig signs bilaterally. LABORATORY DATA: MRI of the C-spine was personally reviewed and demonstrates normal cord signal. There are some disk desiccation, but no cord impingement nor neuroforaminal narrowing. IMPRESSION AND PLAN: A 22-year-old man with the onset of predominantly lower extremity, left greater than right irregular tremoring, which is present with action or passive movement, and resolves with rest. This is associated with leg pain. This occurred in the context of K2 ingestion. Thus far, his workup has been negative for any organic etiology. His exam has a functional quality to it. We will proceed with lumbar puncture to ensure we are not missing anything inflammatory, which could be a result of the toxin exposure. Otherwise , Bryan needs physical therapy and supportive care at this point. If his lumbar puncture is normal, I have no further recommendation for additional workup. [id number]/[facility] #: [id number] [facility] [place]
[2018-03-26] MEDS ORDERED: LORazepam TAB(*) 1 MG PO ONE (20:42)
[2018-03-26] MEDS ORDERED: LORazepam TAB(*) 1 MG ONE (20:45)
[2018-03-27 05:47] LABS: ABS Basophils 0 10^3/ul (0-0.2); ABS Eosinophils 0.2 10^3/ul (0-0.6); ABS Lymphocytes 2.5 10^3/ul (1.0-4.8); ABS Monocytes 0.6 10^3/ul (0-0.8); ABS Neutrophils 4.4 10^3/ul (1.5-7.7); ABS Nucleated RBC 0 10^3/ul; Eosinophil % 2.1 % (0-6); Hematocrit 44 % (42-52); Hemoglobin 14.8 g/dl (14.0-18.0); Lymphocyte % 32.2 % (25-47); Mean Corpuscular HGB Conc 34 g/dl (31-36); Mean Corpuscular Hemoglobin 31 pg (27-31); Mean Corpuscular Volume 90 fL (80-94); Mean Platelet Volume 8.9 um3 (7.4-10.4); Nucleated Red Blood Cells % 0.1; Platelet Count 214 10^3/ul (150-450); Red Blood Count 4.85 10^6/ul (4.0-5.4); Red Cell Distribution Width 13 % (10.5-15); White Blood Count 7.6 10^3/ul (3.5-10.8)
[2018-03-27] MEDS: Ibuprofen TAB* 600 MG PO PRN ×2 (09:38→22:02)
[2018-03-27] MEDS: Polyethylene Glycol 3350* 17 GM PACKET PO PRN (09:39)
--- NOTE | 2018-03-27 09:53 | PN ---
Subjective Date of Service: 03/27/18 Interval History: evaluated by PT yesterday and he was unable to transfer. a ina lift was recommended. he complains of pain in both legs today but cannot describe the pain. he says it's in both calves, ankles, and feet, that it is a muscular pain , and it feels like being pinched. he reports good appetite, mild headache, no diarrhea, fevers, visual changes. Family History: Unchanged from Admission Social History: Unchanged from Admission Past Medical History: Unchanged from Admission Objective Active Medications: Acetaminophen (Tylenol Tab*) 650 mg PO Q6H PRN PRN Reason: pain/fever Last Admin: 03/26/18 20:27 Dose: 650 mg Ibuprofen (Motrin Tab*) 600 mg PO Q6H PRN PRN Reason: PAIN Last Admin: 03/27/18 09:38 Dose: 600 mg Polyethylene Glycol/Electrolytes (Miralax*) 17 gm PO DAILY PRN PRN Reason: CONSTIPATION Last Admin: 03/27/18 09:39 Dose: 17 gm Vital Signs - 8 hr 03/27/18 03:59 Temperature 97.9 F Pulse Rate 61 Respiratory 16 Rate Blood Pressure 117/48 (mmHg) O2 Sat by Pulse 99 Oximetry Oxygen Devices in Use Now: None Appearance: alerts to voice, won't uncover his head when I ask him to so I uncover it, uncooperative with an eye exam, Result Diagrams: 03/27/18 05:27 03/24/18 12:16 Additional Lab and Data: Lab Results 03/22/18 03/22/18 03/22/18 Range/Units 14:50 16:04 16:04 WBC 10.5 (3.5-10.8) 10^3/ul RBC 4.91 (4.0-5.4) 10^6/ul Hgb 14.7 (14.0-18.0) g/dl Hct 44 (42-52) % MCV 90 (80-94) fL MCH 30 (27-31) pg MCHC 34 (31-36) g/dl RDW 13 (10.5-15) % Plt Count 265 (150-450) 10^3/ul MPV 8.9 (7.4-10.4) um3 Neut % (Auto) 69.6 (38-83) % Lymph % (Auto) 21.6 L (25-47) % Garland % (Auto) 7.9 H (0-7) % Eos % (Auto) 0.5 (0-6) % Baso % (Auto) 0.4 (0-2) % Absolute Neuts (auto) 7.3 (1.5-7.7) 10^3/ul Absolute Lymphs (auto) 2.3 (1.0-4.8) 10^3/ul Absolute Monos (auto) 0.8 (0-0.8) 10^3/ul Absolute Eos (auto) 0.1 (0-0.6) 10^3/ul Absolute Basos (auto) 0 (0-0.2) 10^3/ul Absolute Nucleated RBC 0 10^3/ul Nucleated RBC % 0.1 ESR 3 (0-14) mm/Hr Sodium 143 (139-145) mmol/L Potassium 4.0 (3.5-5.0) mmol/L Chloride 109 (101-111) mmol/L Carbon Dioxide 23 (22-32) mmol/L Anion Gap 11 (2-11) mmol/L BUN 13 (6-24) mg/dL Creatinine 0.95 (0.67-1.17) mg/dL Est GFR ( Amer) 130.0 (>60) Est GFR (Non-Af Amer) 101.1 (>60) BUN/Creatinine Ratio 13.7 (8-20) Glucose 86 (70-100) mg/dL Lactic Acid (0.5-2.0) mmol/L Calcium 9.7 (8.6-10.3) mg/dL Total Bilirubin 1.20 H (0.2-1.0) mg/dL AST 11 L (13-39) U/L ALT 9 (7-52) U/L Alkaline Phosphatase 57 (34-104) U/L Total Creatine Kinase 102 (10-223) U/L Myoglobin 21.4 (17.4-105.7) ng/mL Troponin I 0.00 (<0.04) ng/mL C-Reactive Protein < 1.00 (< 5.00) mg/L Total Protein 7.2 (6.4-8.9) g/dL Albumin 4.5 (3.2-5.2) g/dL Globulin 2.7 (2-4) g/dL Albumin/Globulin Ratio 1.7 (1-3) Urine Color Urine Appearance Urine pH (5-9) Ur Specific [place] (1.010-1.030) Urine Protein (Negative) Urine Ketones (Negative) Urine Blood (Negative) Urine Nitrate (Negative) Urine Bilirubin (Negative) Urine Urobilinogen (Negative) Ur Leukocyte Esterase (Negative) Urine Glucose (Negative) 03/22/18 03/22/18 Range/Units 16:04 17:32 WBC (3.5-10.8) 10^3/ul RBC (4.0-5.4) 10^6/ul Hgb (14.0-18.0) g/dl Hct (42-52) % MCV (80-94) fL MCH (27-31) pg MCHC (31-36) g/dl RDW (10.5-15) % Plt Count (150-450) 10^3/ul MPV (7.4-10.4) um3 Neut % (Auto) (38-83) % Lymph % (Auto) (25-47) % Garland % (Auto) (0-7) % Eos % (Auto) (0-6) % Baso % (Auto) (0-2) % Absolute Neuts (auto) (1.5-7.7) 10^3/ul Absolute Lymphs (auto) (1.0-4.8) 10^3/ul Absolute Monos (auto) (0-0.8) 10^3/ul Absolute Eos (auto) (0-0.6) 10^3/ul Absolute Basos (auto) (0-0.2) 10^3/ul Absolute Nucleated RBC 10^3/ul Nucleated RBC % ESR (0-14) mm/Hr Sodium (139-145) mmol/L Potassium (3.5-5.0) mmol/L Chloride (101-111) mmol/L Carbon Dioxide (22-32) mmol/L Anion Gap (2-11) mmol/L BUN (6-24) mg/dL Creatinine (0.67-1.17) mg/dL Est GFR ( Amer) (>60) Est GFR (Non-Af Amer) (>60) BUN/Creatinine Ratio (8-20) Glucose (70-100) mg/dL Lactic Acid 1.3 (0.5-2.0) mmol/L Calcium (8.6-10.3) mg/dL Total Bilirubin (0.2-1.0) mg/dL AST (13-39) U/L ALT (7-52) U/L Alkaline Phosphatase (34-104) U/L Total Creatine Kinase (10-223) U/L Myoglobin (17.4-105.7) ng/mL Troponin I (<0.04) ng/mL C-Reactive Protein (< 5.00) mg/L Total Protein (6.4-8.9) g/dL Albumin (3.2-5.2) g/dL Globulin (2-4) g/dL Albumin/Globulin Ratio (1-3) Urine Color Yellow Urine Appearance Clear Urine pH 6.0 (5-9) Ur Specific [place] 1.023 (1.010-1.030) Urine Protein Negative (Negative) Urine Ketones 1+ A (Negative) Urine Blood Negative (Negative) Urine Nitrate Negative (Negative) Urine Bilirubin Negative (Negative) Urine Urobilinogen Negative (Negative) Ur Leukocyte Esterase Negative (Negative) Urine Glucose Negative (Negative) Microbiology and Other Data: Microbiology 03/22/18 22:40 Nasal Screen MRSA (PCR)(DIONISIO) - Final Nasal Mrsa Not Detected Assess/Plan/Problems-Billing Assessment: Mr Chen is a 22yo [place] inmate who presented to ED x2 this week with c/o weakness and tremors after smoking a synthetic substance (?K2). - Patient Problems (1) Toxic encephalopathy Current Visit: Yes Status: Acute Code(s): G92 - TOXIC ENCEPHALOPATHY SNOMED Code(s): 41180279 Comment: likely due to ?K2 ingestion (unknown substance, he thought it was K2 ) MRI brain and c-spine were unremarkable myoclonus is improving psych consult today to evaluate for conversion disorder (2) Lower extremity weakness Current Visit: Yes Status: Acute Code(s): R29.898 - OTH SYMPTOMS AND SIGNS INVOLVING THE MUSCULOSKELETAL SYSTEM SNOMED Code(s): 846324490 Comment: plan for LP today MRI brain and c-spine unremarkable worked with PT, requiring a ina for transfers needs ongoing PT (3) DVT prophylaxis Current Visit: Yes Status: Acute Code(s): PZW3702 - SNOMED Code(s): 461967689 Comment: on hold for LP tomorrow (4) Full code status Current Visit: Yes Status: Acute Code(s): Z78.9 - OTHER SPECIFIED HEALTH STATUS SNOMED Code(s): 190304646 Status and Disposition: Inpatient.
[2018-03-27] MEDS ORDERED: Magnesium Hydroxide LIQ* 30 ML UDC PO PRN (12:03)
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
--- NOTE | 2018-03-27 21:46 | PM ---
CC: Dr. Ware* [facility] NOTE: DATE OF PROCEDURE: 03/27/18 HISTORY: The patient is a 22-year-old male, who is an inpatient at [facility]. He was admitted after an overdose of smoking K2 approximately 4 days ago. He has been having abnormal movement in his lower extremities, tremor like with myoclonus. There is some suspicion. There is toxicity secondary to his ingestion of this drug. He has not had any further ingestion of the drugs since last Saturday; however, the symptoms of myoclonus in lower extremities and weakness has not resolved. After Dr. Ware consulted on the patient, it was requested that we perform a diagnostic lumbar puncture. The patient had gotten his last dose of Lovenox at 9 p.m. on 03/25/18 and was held for the procedure. I reviewed the medical record, laboratory analysis and history and physical and there is no contraindication to the procedure. ASSESSMENT AND PLAN: Myoclonus, lower extremity weakness in the setting of K2 ingestion. I had a chance to explain the procedure to the patient. It included the discussion of the risks including postdural headache, bleeding, infection, nerve injury, and after discussing this with the patient, informed consent was obtained. PROCEDURE NOTE: The patient is unable to seat up due to pain and weakness and shaking in his lower extremities, so he was placed in a right lateral decubitus position. His back was prepped and draped in the usual sterile fashion. 2 cc of 1% lidocaine was used for local anesthesia at the L3-4 interspace. A 20- gauge introducer was passed into the interspinous space at L3-4 and then a 25- gauge Xiomy needle was passed into the subarachnoid space. There was free flow of clear cerebrospinal fluid. There are no paresthesias or blood noted. I proceeded to collect 4 vials of clear cerebrospinal fluid for laboratory analysis. The needle and introducer were withdrawn. The patient tolerated the procedure well. CSF will be sent to the laboratory per Dr. Ware's orders and he will return to his room. [id number]/[facility] #: [id number] [facility]
[2018-03-28] MEDS: Ibuprofen TAB* 600 MG PO PRN ×2 (12:19→23:19)
--- NOTE | 2018-03-28 14:22 | DS ---
DISCHARGE SUMMARY: DATE OF ADMISSION: 03/23/18 DATE OF DISCHARGE: 03/28/18 PRINCIPAL DISCHARGE DIAGNOSES: 1. Myoclonus. 2. Substance abuse. 3. ? posttraumatic stress disorder. HOSPITAL COURSE BY PROBLEM: Myoclonus in the setting of substance abuse. Mr. Chen presented approximately 4 days after smoking a substance that he thought was K2. Since he smoked that, he comp lained of weakness and shaking especially in the left lower quadrant. He was evaluated by Neurology in the emergency department and they recommended cervical spine and brain MRIs. His cervical spine M RI showed multilevel degenerative disk disease without evidence of focal protrusion and no evidence o f cervical spinal cord abnormal signal. A brain MRI was obtained and showed no intracranial lesion i dentified and no abnormally enhancing lesions. He was admitted and started on [id number] p.o. A tivan, which did not change his symptoms. Further workup was obtained. He had a left leg x-ray, whi ch showed no fracture in the tibia or fibula. Of note, this is where his pain was in both legs when touched. He also had lower extremity Dopplers, which showed no evidence of DVT identified. He had a n EEG with Neurology, which showed a normal waking EEG with no epileptiform abnormalities. The patie nt experienced multiple episodes of whole body tremoring during his EEG, which was associated with no changes in the EEG. Finally, he underwent a lumbar puncture, which showed no neutrophils, no organi sms. His CSF was colorless, had 0 wbc's, the glucose was 60, and the total protein was 30 representi ng a normal CSF fluid analysis. When this comprehensive diagnostic evaluation was also negative, we obtained a Psych consult to evaluate for conversion disorder. The Psych consultation did elicit a hi story of trauma and recommended a possible PTSD component; however, did not believe it to be conversi on disorder. He was then evaluated by Physical Therapy throughout his hospitalization and he require d full assistance with transfers and ambulation. Based on his negative neurologic workup, but ongoing inability to ambulate, we are recommending transfer to a facility, who can continue intensive physic al therapy. PHYSICAL EXAMINATION: At the time of discharge, temperature 98.0, heart rate 74, respiratory rate 18 , pulse ox 100% on room air, and blood pressure 119/63. General: Young man in no distress, who alert s to voice, but remains drowsy. HEENT: Pupils are equal, round, and reactive to light with no nystag mus. Oral mucosa is moist with no oropharyngeal exudates or erythema. Neck: No JVD, no cervical ad enopathy. Thyroid is nonpalpable. Chest: Regular rate and rhythm. No murmurs. PMI is nondisplace d. Lungs are clear bilaterally. Abdomen: Soft, nontender, and nondistended. No guarding, rebound, or rigidity. Extremities: Exquisitely tender to light palpation. This is true over muscles, joints , and bones and is in both lower extremities. His deep tendon reflexes are 2+ bilaterally. He is no ncooperative with proprioception examination. He has gross shaking when his left lower extremity is elevated. Please feel free to contact me with any questions or concerns about Mr. Chen's admission and d leonid. [id number]/[facility] #: [id number]
[2018-03-28] MEDS: Acetaminophen TAB* 325 MG PO PRN (15:07)
--- NOTE | 2018-03-28 16:54 | PN ---
Subjective Date of Service: 03/28/18 Interval History: no overnight events, feels he is getting a little better. appears comfortable. still complains of pain in both legs that he describes as a pinching pain. he refused PT yesterday because he said it was too painful. also complains of pain at the lp site, no bowel or bladder incontinence. Family History: Unchanged from Admission Social History: Unchanged from Admission Past Medical History: Unchanged from Admission Objective Active Medications: Acetaminophen (Tylenol Tab*) 650 mg PO Q6H PRN PRN Reason: pain/fever Last Admin: 03/28/18 15:07 Dose: 650 mg Gabapentin (Neurontin Cap(*)) 300 mg PO BID SARA Ibuprofen (Motrin Tab*) 600 mg PO Q6H PRN PRN Reason: PAIN Last Admin: 03/28/18 12:19 Dose: 600 mg Magnesium Hydroxide (Milk Of Magnesia Liq*) 30 ml PO Q4H PRN PRN Reason: CONSTIPATION Polyethylene Glycol/Electrolytes (Miralax*) 17 gm PO DAILY PRN PRN Reason: CONSTIPATION Last Admin: 03/27/18 09:39 Dose: 17 gm Vital Signs - 8 hr 03/28/18 03/28/18 11:22 16:09 Temperature 98.1 F 98.9 F Pulse Rate 86 69 Respiratory 16 16 Rate Blood Pressure 103/55 96/40 (mmHg) O2 Sat by Pulse 98 100 Oximetry Oxygen Devices in Use Now: None Appearance: alert, resting in bed comfortably Eyes: No Scleral Icterus, - - no nystagmus Ears/Nose/Mouth/Throat: NL Teeth, Lips, Gums Neck: NL Appearance and Movements; NL JVP Respiratory: Symmetrical Chest Expansion and Respiratory Effort, Clear to Auscultation Cardiovascular: NL Sounds; No Murmurs; No JVD, RRR Abdominal: NL Sounds; No Tenderness; No Distention Lymphatic: No Cervical Adenopathy Extremities: No Edema Skin: No Rash or Ulcers Neurological: - - legs are exquisitely tender to light palpation over muscles, joints, and bones, he resists passive range of motion, tremors with left leg when I move it Result Diagrams: 03/27/18 05:27 03/24/18 12:16 Additional Lab and Data: Lab Results 03/22/18 03/22/18 03/22/18 Range/Units 14:50 16:04 16:04 WBC 10.5 (3.5-10.8) 10^3/ul RBC 4.91 (4.0-5.4) 10^6/ul Hgb 14.7 (14.0-18.0) g/dl Hct 44 (42-52) % MCV 90 (80-94) fL MCH 30 (27-31) pg MCHC 34 (31-36) g/dl RDW 13 (10.5-15) % Plt Count 265 (150-450) 10^3/ul MPV 8.9 (7.4-10.4) um3 Neut % (Auto) 69.6 (38-83) % Lymph % (Auto) 21.6 L (25-47) % [place] % (Auto) 7.9 H (0-7) % Eos % (Auto) 0.5 (0-6) % Baso % (Auto) 0.4 (0-2) % Absolute Neuts (auto) 7.3 (1.5-7.7) 10^3/ul Absolute Lymphs (auto) 2.3 (1.0-4.8) 10^3/ul Absolute Monos (auto) 0.8 (0-0.8) 10^3/ul Absolute Eos (auto) 0.1 (0-0.6) 10^3/ul Absolute Basos (auto) 0 (0-0.2) 10^3/ul Absolute Nucleated RBC 0 10^3/ul Nucleated RBC % 0.1 ESR 3 (0-14) mm/Hr Sodium 143 (139-145) mmol/L Potassium 4.0 (3.5-5.0) mmol/L Chloride 109 (101-111) mmol/L Carbon Dioxide 23 (22-32) mmol/L Anion Gap 11 (2-11) mmol/L BUN 13 (6-24) mg/dL Creatinine 0.95 (0.67-1.17) mg/dL Est GFR ( Amer) 130.0 (>60) Est GFR (Non-Af Amer) 101.1 (>60) BUN/Creatinine Ratio 13.7 (8-20) Glucose 86 (70-100) mg/dL Lactic Acid (0.5-2.0) mmol/L Calcium 9.7 (8.6-10.3) mg/dL Total Bilirubin 1.20 H (0.2-1.0) mg/dL AST 11 L (13-39) U/L ALT 9 (7-52) U/L Alkaline Phosphatase 57 (34-104) U/L Total Creatine Kinase 102 (10-223) U/L Myoglobin 21.4 (17.4-105.7) ng/mL Troponin I 0.00 (<0.04) ng/mL C-Reactive Protein < 1.00 (< 5.00) mg/L Total Protein 7.2 (6.4-8.9) g/dL Albumin 4.5 (3.2-5.2) g/dL Globulin 2.7 (2-4) g/dL Albumin/Globulin Ratio 1.7 (1-3) Urine Color Urine Appearance Urine pH (5-9) Ur Specific [place] (1.010-1.030) Urine Protein (Negative) Urine Ketones (Negative) Urine Blood (Negative) Urine Nitrate (Negative) Urine Bilirubin (Negative) Urine Urobilinogen (Negative) Ur Leukocyte Esterase (Negative) Urine Glucose (Negative) 03/22/18 03/22/18 Range/Units 16:04 17:32 WBC (3.5-10.8) 10^3/ul RBC (4.0-5.4) 10^6/ul Hgb (14.0-18.0) g/dl Hct (42-52) % MCV (80-94) fL MCH (27-31) pg MCHC (31-36) g/dl RDW (10.5-15) % Plt Count (150-450) 10^3/ul MPV (7.4-10.4) um3 Neut % (Auto) (38-83) % Lymph % (Auto) (25-47) % [place] % (Auto) (0-7) % Eos % (Auto) (0-6) % Baso % (Auto) (0-2) % Absolute Neuts (auto) (1.5-7.7) 10^3/ul Absolute Lymphs (auto) (1.0-4.8) 10^3/ul Absolute Monos (auto) (0-0.8) 10^3/ul Absolute Eos (auto) (0-0.6) 10^3/ul Absolute Basos (auto) (0-0.2) 10^3/ul Absolute Nucleated RBC 10^3/ul Nucleated RBC % ESR (0-14) mm/Hr Sodium (139-145) mmol/L Potassium (3.5-5.0) mmol/L Chloride (101-111) mmol/L Carbon Dioxide (22-32) mmol/L Anion Gap (2-11) mmol/L BUN (6-24) mg/dL Creatinine (0.67-1.17) mg/dL Est GFR ( Amer) (>60) Est GFR (Non-Af Amer) (>60) BUN/Creatinine Ratio (8-20) Glucose (70-100) mg/dL Lactic Acid 1.3 (0.5-2.0) mmol/L Calcium (8.6-10.3) mg/dL Total Bilirubin (0.2-1.0) mg/dL AST (13-39) U/L ALT (7-52) U/L Alkaline Phosphatase (34-104) U/L Total Creatine Kinase (10-223) U/L Myoglobin (17.4-105.7) ng/mL Troponin I (<0.04) ng/mL C-Reactive Protein (< 5.00) mg/L Total Protein (6.4-8.9) g/dL Albumin (3.2-5.2) g/dL Globulin (2-4) g/dL Albumin/Globulin Ratio (1-3) Urine Color Yellow Urine Appearance Clear Urine pH 6.0 (5-9) Ur Specific [place] 1.023 (1.010-1.030) Urine Protein Negative (Negative) Urine Ketones 1+ A (Negative) Urine Blood Negative (Negative) Urine Nitrate Negative (Negative) Urine Bilirubin Negative (Negative) Urine Urobilinogen Negative (Negative) Ur Leukocyte Esterase Negative (Negative) Urine Glucose Negative (Negative) Microbiology and Other Data: Microbiology 03/22/18 22:40 Nasal Screen MRSA (PCR)(DIONISIO) - Final Nasal Mrsa Not Detected Assess/Plan/Problems-Billing Assessment: Mr Chen is a 22yo [facility] inmate who presented to ED x2 this week with c/o weakness and tremors after smoking a synthetic substance (?K2). - Patient Problems (1) Toxic encephalopathy Current Visit: Yes Status: Acute Code(s): G92 - TOXIC ENCEPHALOPATHY SNOMED Code(s): 18545007 Comment: much more alert today likely due to ?K2 ingestion (unknown substance, he thought it was K2) MRI brain and c-spine were unremarkable myoclonus is improving psych did not believe this is conversion disorder (2) Lower extremity weakness Current Visit: Yes Status: Acute Code(s): R29.898 - OTH SYMPTOMS AND SIGNS INVOLVING THE MUSCULOSKELETAL SYSTEM SNOMED Code(s): 348137419 Comment: LP was unremarkable MRI brain and c-spine unremarkable worked with PT, requiring a ina for transfers needs ongoing PT discussed with case management--[facility] is pursuing placement where he can receive rehab (3) DVT prophylaxis Current Visit: Yes Status: Acute Code(s): GXJ2062 - SNOMED Code(s): 188931796 Comment: fred bennett (4) Full code status Current Visit: Yes Status: Acute Code(s): Z78.9 - OTHER SPECIFIED HEALTH STATUS SNOMED Code(s): 933303512 Status and Disposition: Inpatient.
[2018-03-28] MEDS: Enoxaparin(*) 40 MG/0.4 ML SYR SUBCUT SCH (19:22)
[2018-03-28] MEDS: Gabapentin CAP(*) 300 MG PO SCH (21:09)
[2018-03-29] MEDS: Gabapentin CAP(*) 300 MG PO SCH ×2 (09:36→21:10)
[2018-03-29] MEDS: Acetaminophen TAB* 325 MG PO PRN (12:37)
--- NOTE | 2018-03-29 16:36 | PN ---
Subjective Date of Service: 03/29/18 Interval History: Pt seen and examined. Meds and labs reviewed. ROS: Complains of PERRY. No longer complains of tremors. Denied PERRY/dizziness, F/ C, N/V, CP, SOB, increased cough, sputum production, abd pain, diarrhea, constipation, dysuria, myalgias, arthralgias, throat pain, and new skin lesions. The rest of the 14 point ROS are unremarkable. PHYSICAL EXAM: GEN APPEARANCE: Awake, not in acute distress HEENT: NC/AT, PERRLA, moist oral mucosa, (-) throat erythema NECK: Soft, supple, (-) cervical LAD, (-)JVD HEART: S1S2 WNL, RRR, No MRG CHEST: CTA, BL, GAE, No W/R/R ABD: Soft, ND/NT, NABS 4x Q EXT: No C/C/E SKIN: Warm to touch PSYCH: No active psychosis, hallucinations, depression, SI/HI Family History: Unchanged from Admission Social History: Unchanged from Admission Past Medical History: Unchanged from Admission Objective Active Medications: Acetaminophen (Tylenol Tab*) 650 mg PO Q6H PRN PRN Reason: pain/fever Last Admin: 03/29/18 12:37 Dose: 650 mg Enoxaparin Sodium (Lovenox(*)) 40 mg SUBCUT Q24H [facility] Last Admin: 03/28/18 19:22 Dose: 40 mg Gabapentin (Neurontin Cap(*)) 300 mg PO BID [facility] Last Admin: 03/29/18 09:36 Dose: 300 mg Ibuprofen (Motrin Tab*) 600 mg PO Q6H PRN PRN Reason: PAIN Last Admin: 03/28/18 23:19 Dose: 600 mg Magnesium Hydroxide (Milk Of Magnesia Liq*) 30 ml PO Q4H PRN PRN Reason: CONSTIPATION Polyethylene Glycol/Electrolytes (Miralax*) 17 gm PO DAILY PRN PRN Reason: CONSTIPATION Last Admin: 03/27/18 09:39 Dose: 17 gm Vital Signs - 8 hr 03/29/18 03/29/18 03/29/18 09:36 11:16 12:17 Temperature Pulse Rate 65 Respiratory 16 16 16 Rate Blood Pressure 118/65 (mmHg) O2 Sat by Pulse 100 Oximetry 03/29/18 15:13 Temperature 98.9 F Pulse Rate 65 Respiratory 16 Rate Blood Pressure 105/57 (mmHg) O2 Sat by Pulse 99 Oximetry Oxygen Devices in Use Now: None Result Diagrams: 03/27/18 05:27 03/24/18 12:16 Additional Lab and Data: Lab Results 03/22/18 03/22/18 03/22/18 Range/Units 14:50 16:04 16:04 WBC 10.5 (3.5-10.8) 10^3/ul RBC 4.91 (4.0-5.4) 10^6/ul Hgb 14.7 (14.0-18.0) g/dl Hct 44 (42-52) % MCV 90 (80-94) fL MCH 30 (27-31) pg MCHC 34 (31-36) g/dl RDW 13 (10.5-15) % Plt Count 265 (150-450) 10^3/ul MPV 8.9 (7.4-10.4) um3 Neut % (Auto) 69.6 (38-83) % Lymph % (Auto) 21.6 L (25-47) % [place] % (Auto) 7.9 H (0-7) % Eos % (Auto) 0.5 (0-6) % Baso % (Auto) 0.4 (0-2) % Absolute Neuts (auto) 7.3 (1.5-7.7) 10^3/ul Absolute Lymphs (auto) 2.3 (1.0-4.8) 10^3/ul Absolute Monos (auto) 0.8 (0-0.8) 10^3/ul Absolute Eos (auto) 0.1 (0-0.6) 10^3/ul Absolute Basos (auto) 0 (0-0.2) 10^3/ul Absolute Nucleated RBC 0 10^3/ul Nucleated RBC % 0.1 ESR 3 (0-14) mm/Hr Sodium 143 (139-145) mmol/L Potassium 4.0 (3.5-5.0) mmol/L Chloride 109 (101-111) mmol/L Carbon Dioxide 23 (22-32) mmol/L Anion Gap 11 (2-11) mmol/L BUN 13 (6-24) mg/dL Creatinine 0.95 (0.67-1.17) mg/dL Est GFR ( Amer) 130.0 (>60) Est GFR (Non-Af Amer) 101.1 (>60) BUN/Creatinine Ratio 13.7 (8-20) Glucose 86 (70-100) mg/dL Lactic Acid (0.5-2.0) mmol/L Calcium 9.7 (8.6-10.3) mg/dL Total Bilirubin 1.20 H (0.2-1.0) mg/dL AST 11 L (13-39) U/L ALT 9 (7-52) U/L Alkaline Phosphatase 57 (34-104) U/L Total Creatine Kinase 102 (10-223) U/L Myoglobin 21.4 (17.4-105.7) ng/mL Troponin I 0.00 (<0.04) ng/mL C-Reactive Protein < 1.00 (< 5.00) mg/L Total Protein 7.2 (6.4-8.9) g/dL Albumin 4.5 (3.2-5.2) g/dL Globulin 2.7 (2-4) g/dL Albumin/Globulin Ratio 1.7 (1-3) Urine Color Urine Appearance Urine pH (5-9) Ur Specific [place] (1.010-1.030) Urine Protein (Negative) Urine Ketones (Negative) Urine Blood (Negative) Urine Nitrate (Negative) Urine Bilirubin (Negative) Urine Urobilinogen (Negative) Ur Leukocyte Esterase (Negative) Urine Glucose (Negative) 03/22/18 03/22/18 Range/Units 16:04 17:32 WBC (3.5-10.8) 10^3/ul RBC (4.0-5.4) 10^6/ul Hgb (14.0-18.0) g/dl Hct (42-52) % MCV (80-94) fL MCH (27-31) pg MCHC (31-36) g/dl RDW (10.5-15) % Plt Count (150-450) 10^3/ul MPV (7.4-10.4) um3 Neut % (Auto) (38-83) % Lymph % (Auto) (25-47) % [place] % (Auto) (0-7) % Eos % (Auto) (0-6) % Baso % (Auto) (0-2) % Absolute Neuts (auto) (1.5-7.7) 10^3/ul Absolute Lymphs (auto) (1.0-4.8) 10^3/ul Absolute Monos (auto) (0-0.8) 10^3/ul Absolute Eos (auto) (0-0.6) 10^3/ul Absolute Basos (auto) (0-0.2) 10^3/ul Absolute Nucleated RBC 10^3/ul Nucleated RBC % ESR (0-14) mm/Hr Sodium (139-145) mmol/L Potassium (3.5-5.0) mmol/L Chloride (101-111) mmol/L Carbon Dioxide (22-32) mmol/L Anion Gap (2-11) mmol/L BUN (6-24) mg/dL Creatinine (0.67-1.17) mg/dL Est GFR ( Amer) (>60) Est GFR (Non-Af Amer) (>60) BUN/Creatinine Ratio (8-20) Glucose (70-100) mg/dL Lactic Acid 1.3 (0.5-2.0) mmol/L Calcium (8.6-10.3) mg/dL Total Bilirubin (0.2-1.0) mg/dL AST (13-39) U/L ALT (7-52) U/L Alkaline Phosphatase (34-104) U/L Total Creatine Kinase (10-223) U/L Myoglobin (17.4-105.7) ng/mL Troponin I (<0.04) ng/mL C-Reactive Protein (< 5.00) mg/L Total Protein (6.4-8.9) g/dL Albumin (3.2-5.2) g/dL Globulin (2-4) g/dL Albumin/Globulin Ratio (1-3) Urine Color Yellow Urine Appearance Clear Urine pH 6.0 (5-9) Ur Specific [place] 1.023 (1.010-1.030) Urine Protein Negative (Negative) Urine Ketones 1+ A (Negative) Urine Blood Negative (Negative) Urine Nitrate Negative (Negative) Urine Bilirubin Negative (Negative) Urine Urobilinogen Negative (Negative) Ur Leukocyte Esterase Negative (Negative) Urine Glucose Negative (Negative) Microbiology and Other Data: Microbiology 03/22/18 22:40 Nasal Screen MRSA (PCR)(DIONISIO) - Final Nasal Mrsa Not Detected Assess/Plan/Problems-Billing Assessment: Mr Chen is a 22[address] [facility] inmate who presented to ED x2 this week with c/o weakness and tremors after smoking a synthetic substance (?K2). - Patient Problems (1) Toxic encephalopathy Current Visit: Yes Status: Acute Code(s): G92 - TOXIC ENCEPHALOPATHY SNOMED Code(s): 93208114 Comment: --Alert and weak appearing --Likely due to ?K2 ingestion (unknown substance, he thought it was K2) --MRI brain and c-spine were unremarkable --myoclonus is resolved --psych did not believe this is conversion disorder (2) Lower extremity weakness Current Visit: Yes Comment: --LP was unremarkable --MRI brain and c-spine unremarkable --worked with PT, requiring a ina for transfers --needs ongoing PT and currently being placed for rehab (3) DVT prophylaxis Current Visit: Yes Status: Acute Code(s): XPT1312 - SNOMED Code(s): 861286932 Comment: --Continue lovenox Status and Disposition: --Awaiting placement to rehab --Possible D/C on Saturday?
[2018-03-29] MEDS: Ibuprofen TAB* 600 MG PO PRN (21:15)
[2018-03-29] MEDS: Enoxaparin(*) 40 MG/0.4 ML SYR SUBCUT SCH ×2 (21:19→21:23)
[2018-03-30] MEDS: Acetaminophen TAB* 325 MG PO PRN ×2 (01:52→12:44)
[2018-03-30 07:10] LABS: ABS Basophils 0 10^3/ul (0-0.2); ABS Eosinophils 0.1 10^3/ul (0-0.6); ABS Lymphocytes 2.6 10^3/ul (1.0-4.8); ABS Monocytes 0.7 10^3/ul (0-0.8); ABS Neutrophils 4.2 10^3/ul (1.5-7.7); ABS Nucleated RBC 0 10^3/ul; Eosinophil % 1.1 % (0-6); Hematocrit 43 % (42-52); Hemoglobin 14.8 g/dl (14.0-18.0); Lymphocyte % 34.4 % (25-47); Mean Corpuscular HGB Conc 35 g/dl (31-36); Mean Corpuscular Hemoglobin 31 pg (27-31); Mean Corpuscular Volume 89 fL (80-94); Mean Platelet Volume 8.8 um3 (7.4-10.4); Nucleated Red Blood Cells % 0.1; Platelet Count 259 10^3/ul (150-450); Red Cell Distribution Width 13 % (10.5-15); White Blood Count 7.7 10^3/ul (3.5-10.8)
[2018-03-30 07:49] LABS: EGFR Non-African American 104.9 (>60)
[2018-03-30] MEDS: Gabapentin CAP(*) 300 MG PO SCH ×2 (08:11→21:01)
--- NOTE | 2018-03-30 13:54 | PN ---
Subjective Date of Service: 03/30/18 Interval History: Pt seen and examined. Meds and labs reviewed. Pt is more awake and interactive this morning and mentions his PERRY from yesterday has improved. ROS: PERRY improved. However, still complains of legs being sensitive to touch along with BLLE weakness and asked practitioner whether he's going to be able to walk priorr to D/C. Please see discussion below. Denied dizziness, F/C, N/V , CP, SOB, increased cough, sputum production, abd pain, diarrhea, constipation , dysuria, myalgias, arthralgias, throat pain, and new skin lesions. The rest of the 14 point ROS are unremarkable. PHYSICAL EXAM: GEN APPEARANCE: Awake, not in acute distress HEENT: NC/AT, PERRLA, moist oral mucosa, (-) throat erythema NECK: Soft, supple, (-) cervical LAD, (-)JVD HEART: S1S2 WNL, RRR, No MRG CHEST: CTA, BL, GAE, No W/R/R ABD: Soft, ND/NT, NABS 4x Q EXT: No C/C/E SKIN: Warm to touch, No signs of inflammation; pt's BLLE are sensitive to medium touch PSYCH: No active psychosis, hallucinations, depression, SI/HI Family History: Unchanged from Admission Social History: Unchanged from Admission Past Medical History: Unchanged from Admission Objective Active Medications: Acetaminophen (Tylenol Tab*) 650 mg PO Q6H PRN PRN Reason: pain/fever Last Admin: 03/30/18 12:44 Dose: 650 mg Enoxaparin Sodium (Lovenox(*)) 40 mg SUBCUT [facility] Last Admin: 03/29/18 21:23 Dose: Not Given Gabapentin (Neurontin Cap(*)) 300 mg PO BID [facility] Last Admin: 03/30/18 08:11 Dose: 300 mg Ibuprofen (Motrin Tab*) 600 mg PO Q6H PRN PRN Reason: PAIN Last Admin: 03/29/18 21:15 Dose: 600 mg Magnesium Hydroxide (Milk Of Magnesia Liq*) 30 ml PO Q4H PRN PRN Reason: CONSTIPATION Polyethylene Glycol/Electrolytes (Miralax*) 17 gm PO DAILY PRN PRN Reason: CONSTIPATION Last Admin: 03/27/18 09:39 Dose: 17 gm Vital Signs - 8 hr 03/30/18 03/30/18 03/30/18 08:00 08:10 08:11 Temperature 98.2 F Pulse Rate 59 Respiratory 12 12 12 Rate Blood Pressure 108/67 (mmHg) O2 Sat by Pulse 100 Oximetry 03/30/18 03/30/18 03/30/18 08:18 11:22 13:00 Temperature 99.5 F Pulse Rate 76 Respiratory 12 17 16 Rate Blood Pressure 119/48 (mmHg) O2 Sat by Pulse 100 Oximetry Oxygen Devices in Use Now: None Result Diagrams: 03/30/18 06:34 03/30/18 06:34 Additional Lab and Data: Lab Results 03/22/18 03/22/18 03/22/18 Range/Units 14:50 16:04 16:04 WBC 10.5 (3.5-10.8) 10^3/ul RBC 4.91 (4.0-5.4) 10^6/ul Hgb 14.7 (14.0-18.0) g/dl Hct 44 (42-52) % MCV 90 (80-94) fL MCH 30 (27-31) pg MCHC 34 (31-36) g/dl RDW 13 (10.5-15) % Plt Count 265 (150-450) 10^3/ul MPV 8.9 (7.4-10.4) um3 Neut % (Auto) 69.6 (38-83) % Lymph % (Auto) 21.6 L (25-47) % [place] % (Auto) 7.9 H (0-7) % Eos % (Auto) 0.5 (0-6) % Baso % (Auto) 0.4 (0-2) % Absolute Neuts (auto) 7.3 (1.5-7.7) 10^3/ul Absolute Lymphs (auto) 2.3 (1.0-4.8) 10^3/ul Absolute Monos (auto) 0.8 (0-0.8) 10^3/ul Absolute Eos (auto) 0.1 (0-0.6) 10^3/ul Absolute Basos (auto) 0 (0-0.2) 10^3/ul Absolute Nucleated RBC 0 10^3/ul Nucleated RBC % 0.1 ESR 3 (0-14) mm/Hr Sodium 143 (139-145) mmol/L Potassium 4.0 (3.5-5.0) mmol/L Chloride 109 (101-111) mmol/L Carbon Dioxide 23 (22-32) mmol/L Anion Gap 11 (2-11) mmol/L BUN 13 (6-24) mg/dL Creatinine 0.95 (0.67-1.17) mg/dL Est GFR ( Amer) 130.0 (>60) Est GFR (Non-Af Amer) 101.1 (>60) BUN/Creatinine Ratio 13.7 (8-20) Glucose 86 (70-100) mg/dL Lactic Acid (0.5-2.0) mmol/L Calcium 9.7 (8.6-10.3) mg/dL Total Bilirubin 1.20 H (0.2-1.0) mg/dL AST 11 L (13-39) U/L ALT 9 (7-52) U/L Alkaline Phosphatase 57 (34-104) U/L Total Creatine Kinase 102 (10-223) U/L Myoglobin 21.4 (17.4-105.7) ng/mL Troponin I 0.00 (<0.04) ng/mL C-Reactive Protein < 1.00 (< 5.00) mg/L Total Protein 7.2 (6.4-8.9) g/dL Albumin 4.5 (3.2-5.2) g/dL Globulin 2.7 (2-4) g/dL Albumin/Globulin Ratio 1.7 (1-3) Urine Color Urine Appearance Urine pH (5-9) Ur Specific [place] (1.010-1.030) Urine Protein (Negative) Urine Ketones (Negative) Urine Blood (Negative) Urine Nitrate (Negative) Urine Bilirubin (Negative) Urine Urobilinogen (Negative) Ur Leukocyte Esterase (Negative) Urine Glucose (Negative) 03/22/18 03/22/18 Range/Units 16:04 17:32 WBC (3.5-10.8) 10^3/ul RBC (4.0-5.4) 10^6/ul Hgb (14.0-18.0) g/dl Hct (42-52) % MCV (80-94) fL MCH (27-31) pg MCHC (31-36) g/dl RDW (10.5-15) % Plt Count (150-450) 10^3/ul MPV (7.4-10.4) um3 Neut % (Auto) (38-83) % Lymph % (Auto) (25-47) % [place] % (Auto) (0-7) % Eos % (Auto) (0-6) % Baso % (Auto) (0-2) % Absolute Neuts (auto) (1.5-7.7) 10^3/ul Absolute Lymphs (auto) (1.0-4.8) 10^3/ul Absolute Monos (auto) (0-0.8) 10^3/ul Absolute Eos (auto) (0-0.6) 10^3/ul Absolute Basos (auto) (0-0.2) 10^3/ul Absolute Nucleated RBC 10^3/ul Nucleated RBC % ESR (0-14) mm/Hr Sodium (139-145) mmol/L Potassium (3.5-5.0) mmol/L Chloride (101-111) mmol/L Carbon Dioxide (22-32) mmol/L Anion Gap (2-11) mmol/L BUN (6-24) mg/dL Creatinine (0.67-1.17) mg/dL Est GFR ( Amer) (>60) Est GFR (Non-Af Amer) (>60) BUN/Creatinine Ratio (8-20) Glucose (70-100) mg/dL Lactic Acid 1.3 (0.5-2.0) mmol/L Calcium (8.6-10.3) mg/dL Total Bilirubin (0.2-1.0) mg/dL AST (13-39) U/L ALT (7-52) U/L Alkaline Phosphatase (34-104) U/L Total Creatine Kinase (10-223) U/L Myoglobin (17.4-105.7) ng/mL Troponin I (<0.04) ng/mL C-Reactive Protein (< 5.00) mg/L Total Protein (6.4-8.9) g/dL Albumin (3.2-5.2) g/dL Globulin (2-4) g/dL Albumin/Globulin Ratio (1-3) Urine Color Yellow Urine Appearance Clear Urine pH 6.0 (5-9) Ur Specific [place] 1.023 (1.010-1.030) Urine Protein Negative (Negative) Urine Ketones 1+ A (Negative) Urine Blood Negative (Negative) Urine Nitrate Negative (Negative) Urine Bilirubin Negative (Negative) Urine Urobilinogen Negative (Negative) Ur Leukocyte Esterase Negative (Negative) Urine Glucose Negative (Negative) Microbiology and Other Data: Microbiology 03/22/18 22:40 Nasal Screen MRSA (PCR)(DIONISIO) - Final Nasal Mrsa Not Detected Assess/Plan/Problems-Billing Assessment: Mr Chen is a 22yo [facility] inmate who presented to ED x2 this week with c/o weakness and tremors after smoking a synthetic substance (?K2). - Patient Problems (1) Toxic encephalopathy Current Visit: Yes Status: Acute Code(s): G92 - TOXIC ENCEPHALOPATHY SNOMED Code(s): 02888574 Comment: --Alert and weak appearing --Likely due to ?K2 ingestion (unknown substance, he thought it was K2) --MRI brain and c-spine were unremarkable --myoclonus is resolved --psych did not believe this is conversion disorder (2) Lower extremity weakness Current Visit: Yes Status: Acute Code(s): R29.898 - OTH SYMPTOMS AND SIGNS INVOLVING THE MUSCULOSKELETAL SYSTEM SNOMED Code(s): 831228888 Comment: --Accompanied by BLLE skin hypersensitivity --Concerning for neuropathy due to K2 use? --Pt encouraged to participate with PT --LP was unremarkable --MRI brain and c-spine unremarkable --worked with PT, requiring a ina for transfers --needs ongoing PT and currently being placed for rehab (3) DVT prophylaxis Current Visit: Yes Status: Acute Code(s): GNQ5361 - SNOMED Code(s): 428684241 Comment: --Continue lovenox Status and Disposition: --Awaiting placement to rehab --Possible D/C on Saturday?
[2018-03-30] MEDS: Ibuprofen TAB* 600 MG PO PRN ×2 (16:04→21:01)
[2018-03-30] MEDS: Enoxaparin(*) 40 MG/0.4 ML SYR SUBCUT SCH (21:00)
[2018-03-31 06:41] LABS: ABS Basophils 0 10^3/ul (0-0.2); ABS Eosinophils 0.1 10^3/ul (0-0.6); ABS Lymphocytes 2.8 10^3/ul (1.0-4.8); ABS Monocytes 0.7 10^3/ul (0-0.8); ABS Neutrophils 2.9 10^3/ul (1.5-7.7); ABS Nucleated RBC 0 10^3/ul; Eosinophil % 2.2 % (0-6); Hematocrit 42 % (42-52); Hemoglobin 14.5 g/dl (14.0-18.0); Lymphocyte % 43.2 % (25-47); Mean Corpuscular HGB Conc 35 g/dl (31-36); Mean Corpuscular Hemoglobin 31 pg (27-31); Mean Corpuscular Volume 90 fL (80-94); Mean Platelet Volume 8.5 um3 (7.4-10.4); Nucleated Red Blood Cells % 0.1; Platelet Count 243 10^3/ul (150-450); Red Blood Count 4.69 10^6/ul (4.0-5.4); Red Cell Distribution Width 13 % (10.5-15); White Blood Count 6.5 10^3/ul (3.5-10.8)
[2018-03-31 06:58] LABS: EGFR Non-African American 97.5 (>60)
[2018-03-31] MEDS: Gabapentin CAP(*) 300 MG PO SCH ×2 (09:07→20:55)
--- NOTE | 2018-03-31 12:07 | CONSULT ---
Identification - Patient Identification Reason for Psychiatric Consultation: Patient Distress -: Patient is a 22 year old, M admitted on 03/23/18. - MHU Identification Employment Status: Incarcerated Hx Psychiatric Hospitalization: Yes History - Objective HPI: Bryan continues to be aloof and minimally cooperative. He does indicate that his pain has improved but he is anxious about still needing assistance with ambulation. Provider notes indicate that he is being considered for inpatient rehab. He denies SI or HI. Lab Results: Laboratory Tests 03/24/18 03/27/18 03/27/18 12:16 05:27 05:27 WBC 7.6 RBC 4.85 Hgb 14.8 Hct 44 MCV 90 MCH 31 MCHC 34 RDW 13 Plt Count 214 MPV 8.9 Neut % (Auto) 57.4 Lymph % (Auto) 32.2 [place] % (Auto) 7.8 H Eos % (Auto) 2.1 Baso % (Auto) 0.5 Absolute Neuts (auto) 4.4 Absolute Lymphs (auto) 2.5 Absolute Monos (auto) 0.6 Absolute Eos (auto) 0.2 Absolute Basos (auto) 0 Absolute Nucleated RBC 0 Nucleated RBC % 0.1 APTT 28.6 Sodium 141 Potassium 3.9 Chloride 110 Carbon Dioxide 25 Anion Gap 6 BUN 7 Creatinine 0.80 Est GFR ( Amer) 158.5 Est GFR (Non-Af Amer) 123.2 BUN/Creatinine Ratio 8.8 Glucose 109 H Calcium 9.2 Magnesium Total Bilirubin 0.90 AST 11 L ALT 8 Alkaline Phosphatase 57 Total Creatine Kinase 93 Total Protein 6.3 L Albumin 4.1 Globulin 2.2 Albumin/Globulin Ratio 1.9 Fluid Source Fluid Volume Fluid Color Fluid Appearance Fluid WBC Fluid RBC Fluid Tot Cell Count Fluid Monocytes Fluid Cell Count Rvw By Fluid Comment CSF Cell Count Tube # CSF Glucose CSF Total Protein CSF VDRL 03/27/18 03/27/18 03/27/18 15:00 15:00 15:00 WBC RBC Hgb Hct MCV MCH MCHC RDW Plt Count MPV Neut % (Auto) Lymph % (Auto) [place] % (Auto) Eos % (Auto) Baso % (Auto) Absolute Neuts (auto) Absolute Lymphs (auto) Absolute Monos (auto) Absolute Eos (auto) Absolute Basos (auto) Absolute Nucleated RBC Nucleated RBC % APTT Sodium Potassium Chloride Carbon Dioxide Anion Gap BUN Creatinine Est GFR ( Amer) Est GFR (Non-Af Amer) BUN/Creatinine Ratio Glucose Calcium Magnesium Total Bilirubin AST ALT Alkaline Phosphatase Total Creatine Kinase Total Protein Albumin Globulin Albumin/Globulin Ratio Fluid Source Cerebral spinal Fluid Volume 4 Fluid Color Colorless Fluid Appearance Clear Fluid WBC 0 Fluid RBC 107 Fluid Tot Cell Count 2 Fluid Monocytes 2 Fluid Cell Count Rvw By Fluid Comment CSF Cell Count Tube # 4 CSF Glucose 60 CSF Total Protein 30 CSF VDRL Negative 03/30/18 03/30/18 03/31/18 06:34 06:34 06:25 WBC 7.7 6.5 RBC 4.80 4.69 Hgb 14.8 14.5 Hct 43 42 MCV 89 90 MCH 31 31 MCHC 35 35 RDW 13 13 Plt Count 259 243 MPV 8.8 8.5 Neut % (Auto) 54.4 44.0 Lymph % (Auto) 34.4 43.2 [place] % (Auto) 9.6 H 9.9 H Eos % (Auto) 1.1 2.2 Baso % (Auto) 0.5 0.7 Absolute Neuts (auto) 4.2 2.9 Absolute Lymphs (auto) 2.6 2.8 Absolute Monos (auto) 0.7 0.7 Absolute Eos (auto) 0.1 0.1 Absolute Basos (auto) 0 0 Absolute Nucleated RBC 0 0 Nucleated RBC % 0.1 0.1 APTT Sodium 139 Potassium 3.8 Chloride 103 Carbon Dioxide 30 Anion Gap 6 BUN 10 Creatinine 0.92 Est GFR ( Amer) 134.9 Est GFR (Non-Af Amer) 104.9 BUN/Creatinine Ratio 10.9 Glucose 72 Calcium 9.8 Magnesium 2.2 Total Bilirubin 0.60 AST 20 ALT 61 H Alkaline Phosphatase 55 Total Creatine Kinase Total Protein 7.1 Albumin 4.4 Globulin 2.7 Albumin/Globulin Ratio 1.6 Fluid Source Fluid Volume Fluid Color Fluid Appearance Fluid WBC Fluid RBC Fluid Tot Cell Count Fluid Monocytes Fluid Cell Count Rvw By Fluid Comment CSF Cell Count Tube # CSF Glucose CSF Total Protein CSF VDRL 03/31/18 06:25 WBC RBC Hgb Hct MCV MCH MCHC RDW Plt Count MPV Neut % (Auto) Lymph % (Auto) [place] % (Auto) Eos % (Auto) Baso % (Auto) Absolute Neuts (auto) Absolute Lymphs (auto) Absolute Monos (auto) Absolute Eos (auto) Absolute Basos (auto) Absolute Nucleated RBC Nucleated RBC % APTT Sodium 137 L Potassium 4.1 Chloride 103 Carbon Dioxide 28 Anion Gap 6 BUN 9 Creatinine 0.98 Est GFR ( Amer) 125.4 Est GFR (Non-Af Amer) 97.5 BUN/Creatinine Ratio 9.2 Glucose 96 Calcium 9.8 Magnesium Total Bilirubin AST ALT Alkaline Phosphatase Total Creatine Kinase Total Protein Albumin Globulin Albumin/Globulin Ratio Fluid Source Fluid Volume Fluid Color Fluid Appearance Fluid WBC Fluid RBC Fluid Tot Cell Count Fluid Monocytes Fluid Cell Count Rvw By Fluid Comment CSF Cell Count Tube # CSF Glucose CSF Total Protein CSF VDRL Exam Appearance: Well Developed/Nourished Hygiene: Normal Grooming: Fairly Well Kept Psychomotor Activities: Abnormal-Decreased Exhibits Abnormal Movement: No Attitude and Relatedness: Minimally Cooperative Eye Contact: Poor - Speech Quality: Unpressured Latencies: Long Quantity: Terse Patient's Decription of Mood: "Okay" Observed Affect: Fair Affect Consistent with: Euthymia Patient's Thought Process: Coherent Thought Content: No Passive Wish, No Suicidal Planning, No Homicidal Ideation, No Paranoid Ideation Experiencing Hallucinations: No, Sensorium is Clear Type of Hallucinations: Visual: No, Auditory: No, Command: No Level of Consciousness: Alert Orientation: Yes Intact, Yes Orientated to Time, Yes Orientated to Place, Yes Orientated to Person Impulse Control: Tenuous Insight and Judgement: Fair Impression - Impression Clinical Impression: 22 y.o. single, male, immigrant [place] currently incarcerated at [address] [place] [address], admitted to medicine due to tremor, neuropathic pain and inability to walk following ingestion of synthetic cannabinoid on . Inpatient DSM-V Dx: F12.10 Merits Inpatient Hospitalization: No Plan - Treatment Plan Treatment Plan: Patient recuperating from toxic exposure to synthetic cannabinoid smuggled into his longterm. Awaits conservative management with PT/OT, perhaps in rehab setting. Psychiatry will continue to follow. Medications: Current Medications Acetaminophen (Tylenol Tab*) 650 mg PO Q6H PRN PRN Reason: pain/fever Last Admin: 03/30/18 12:44 Dose: 650 mg Enoxaparin Sodium (Lovenox(*)) 40 mg SUBCUT 2100 SARA Last Admin: 03/30/18 21:00 Dose: 40 mg Gabapentin (Neurontin Cap(*)) 300 mg PO BID [facility] Last Admin: 03/31/18 09:07 Dose: 300 mg Ibuprofen (Motrin Tab*) 600 mg PO Q6H PRN PRN Reason: PAIN Last Admin: 03/30/18 21:01 Dose: 600 mg Magnesium Hydroxide (Milk Of Magnesia Liq*) 30 ml PO Q4H PRN PRN Reason: CONSTIPATION Polyethylene Glycol/Electrolytes (Miralax*) 17 gm PO DAILY PRN PRN Reason: CONSTIPATION Last Admin: 03/27/18 09:39 Dose: 17 gm
[2018-03-31] MEDS: Ibuprofen TAB* 600 MG PO PRN ×2 (15:18→23:28)
--- NOTE | 2018-03-31 20:12 | PN ---
Subjective Date of Service: 03/31/18 Interval History: PHYSICAL EXAM: GEN APPEARANCE: Awake, not in acute distress HEENT: NC/AT, PERRLA, moist oral mucosa, (-) throat erythema NECK: Soft, supple, (-) cervical LAD, (-)JVD HEART: S1S2 WNL, RRR, No MRG CHEST: CTA, BL, GAE, No W/R/R ABD: Soft, ND/NT, NABS 4x Q EXT: No C/C/E SKIN: Warm to touch, No signs of inflammation; pt's BLLE are sensitive to medium touch PSYCH: No active psychosis, hallucinations, depression, SI/HI Family History: Unchanged from Admission Social History: Unchanged from Admission Past Medical History: Unchanged from Admission Objective Active Medications: Acetaminophen (Tylenol Tab*) 650 mg PO Q6H PRN PRN Reason: pain/fever Last Admin: 03/30/18 12:44 Dose: 650 mg Enoxaparin Sodium (Lovenox(*)) 40 mg SUBCUT 2100 SARA Last Admin: 03/30/18 21:00 Dose: 40 mg Gabapentin (Neurontin Cap(*)) 300 mg PO TID SARA Ibuprofen (Motrin Tab*) 600 mg PO Q6H PRN PRN Reason: PAIN Last Admin: 03/31/18 15:18 Dose: 600 mg Magnesium Hydroxide (Milk Of Magnesia Liq*) 30 ml PO Q4H PRN PRN Reason: CONSTIPATION Polyethylene Glycol/Electrolytes (Miralax*) 17 gm PO DAILY PRN PRN Reason: CONSTIPATION Last Admin: 03/27/18 09:39 Dose: 17 gm Vital Signs - 8 hr 03/31/18 15:09 Temperature 98.6 F Pulse Rate 84 Respiratory 20 Rate Blood Pressure 120/66 (mmHg) O2 Sat by Pulse 99 Oximetry Oxygen Devices in Use Now: None Result Diagrams: 03/31/18 06:25 03/31/18 06:25 Additional Lab and Data: Lab Results 03/22/18 03/22/18 03/22/18 Range/Units 14:50 16:04 16:04 WBC 10.5 (3.5-10.8) 10^3/ul RBC 4.91 (4.0-5.4) 10^6/ul Hgb 14.7 (14.0-18.0) g/dl Hct 44 (42-52) % MCV 90 (80-94) fL MCH 30 (27-31) pg MCHC 34 (31-36) g/dl RDW 13 (10.5-15) % Plt Count 265 (150-450) 10^3/ul MPV 8.9 (7.4-10.4) um3 Neut % (Auto) 69.6 (38-83) % Lymph % (Auto) 21.6 L (25-47) % [place] % (Auto) 7.9 H (0-7) % Eos % (Auto) 0.5 (0-6) % Baso % (Auto) 0.4 (0-2) % Absolute Neuts (auto) 7.3 (1.5-7.7) 10^3/ul Absolute Lymphs (auto) 2.3 (1.0-4.8) 10^3/ul Absolute Monos (auto) 0.8 (0-0.8) 10^3/ul Absolute Eos (auto) 0.1 (0-0.6) 10^3/ul Absolute Basos (auto) 0 (0-0.2) 10^3/ul Absolute Nucleated RBC 0 10^3/ul Nucleated RBC % 0.1 ESR 3 (0-14) mm/Hr Sodium 143 (139-145) mmol/L Potassium 4.0 (3.5-5.0) mmol/L Chloride 109 (101-111) mmol/L Carbon Dioxide 23 (22-32) mmol/L Anion Gap 11 (2-11) mmol/L BUN 13 (6-24) mg/dL Creatinine 0.95 (0.67-1.17) mg/dL Est GFR ( Amer) 130.0 (>60) Est GFR (Non-Af Amer) 101.1 (>60) BUN/Creatinine Ratio 13.7 (8-20) Glucose 86 (70-100) mg/dL Lactic Acid (0.5-2.0) mmol/L Calcium 9.7 (8.6-10.3) mg/dL Total Bilirubin 1.20 H (0.2-1.0) mg/dL AST 11 L (13-39) U/L ALT 9 (7-52) U/L Alkaline Phosphatase 57 (34-104) U/L Total Creatine Kinase 102 (10-223) U/L Myoglobin 21.4 (17.4-105.7) ng/mL Troponin I 0.00 (<0.04) ng/mL C-Reactive Protein < 1.00 (< 5.00) mg/L Total Protein 7.2 (6.4-8.9) g/dL Albumin 4.5 (3.2-5.2) g/dL Globulin 2.7 (2-4) g/dL Albumin/Globulin Ratio 1.7 (1-3) Urine Color Urine Appearance Urine pH (5-9) Ur Specific [place] (1.010-1.030) Urine Protein (Negative) Urine Ketones (Negative) Urine Blood (Negative) Urine Nitrate (Negative) Urine Bilirubin (Negative) Urine Urobilinogen (Negative) Ur Leukocyte Esterase (Negative) Urine Glucose (Negative) 03/22/18 03/22/18 Range/Units 16:04 17:32 WBC (3.5-10.8) 10^3/ul RBC (4.0-5.4) 10^6/ul Hgb (14.0-18.0) g/dl Hct (42-52) % MCV (80-94) fL MCH (27-31) pg MCHC (31-36) g/dl RDW (10.5-15) % Plt Count (150-450) 10^3/ul MPV (7.4-10.4) um3 Neut % (Auto) (38-83) % Lymph % (Auto) (25-47) % [place] % (Auto) (0-7) % Eos % (Auto) (0-6) % Baso % (Auto) (0-2) % Absolute Neuts (auto) (1.5-7.7) 10^3/ul Absolute Lymphs (auto) (1.0-4.8) 10^3/ul Absolute Monos (auto) (0-0.8) 10^3/ul Absolute Eos (auto) (0-0.6) 10^3/ul Absolute Basos (auto) (0-0.2) 10^3/ul Absolute Nucleated RBC 10^3/ul Nucleated RBC % ESR (0-14) mm/Hr Sodium (139-145) mmol/L Potassium (3.5-5.0) mmol/L Chloride (101-111) mmol/L Carbon Dioxide (22-32) mmol/L Anion Gap (2-11) mmol/L BUN (6-24) mg/dL Creatinine (0.67-1.17) mg/dL Est GFR ( Amer) (>60) Est GFR (Non-Af Amer) (>60) BUN/Creatinine Ratio (8-20) Glucose (70-100) mg/dL Lactic Acid 1.3 (0.5-2.0) mmol/L Calcium (8.6-10.3) mg/dL Total Bilirubin (0.2-1.0) mg/dL AST (13-39) U/L ALT (7-52) U/L Alkaline Phosphatase (34-104) U/L Total Creatine Kinase (10-223) U/L Myoglobin (17.4-105.7) ng/mL Troponin I (<0.04) ng/mL C-Reactive Protein (< 5.00) mg/L Total Protein (6.4-8.9) g/dL Albumin (3.2-5.2) g/dL Globulin (2-4) g/dL Albumin/Globulin Ratio (1-3) Urine Color Yellow Urine Appearance Clear Urine pH 6.0 (5-9) Ur Specific [place] 1.023 (1.010-1.030) Urine Protein Negative (Negative) Urine Ketones 1+ A (Negative) Urine Blood Negative (Negative) Urine Nitrate Negative (Negative) Urine Bilirubin Negative (Negative) Urine Urobilinogen Negative (Negative) Ur Leukocyte Esterase Negative (Negative) Urine Glucose Negative (Negative) Microbiology and Other Data: Microbiology 03/22/18 22:40 Nasal Screen MRSA (PCR)(DIONISIO) - Final Nasal Mrsa Not Detected Assess/Plan/Problems-Billing Assessment: Mr Chen is a 22yo [place] inmate who presented to ED x2 this week with c/o weakness and tremors after smoking a synthetic substance (?K2). - Patient Problems (1) Toxic encephalopathy Current Visit: Yes Status: Acute Code(s): G92 - TOXIC ENCEPHALOPATHY SNOMED Code(s): 17977228 Comment: --Alert and weak appearing --Likely due to ?K2 ingestion (unknown substance, he thought it was K2) --MRI brain and c-spine were unremarkable --myoclonus is resolved --psych did not believe this is conversion disorder (2) Lower extremity weakness Current Visit: Yes Status: Acute Code(s): R29.898 - OTH SYMPTOMS AND SIGNS INVOLVING THE MUSCULOSKELETAL SYSTEM SNOMED Code(s): 048380525 Comment: --Accompanied by BLLE skin hypersensitivity --Concerning for neuropathy due to K2 use? --Pt encouraged to participate with PT --LP was unremarkable --MRI brain and c-spine unremarkable --worked with PT, requiring a ina for transfers --needs ongoing PT and currently being placed for rehab (3) DVT prophylaxis Current Visit: Yes Status: Acute Code(s): PVP3091 - SNOMED Code(s): 056098783 Comment: --Continue lovenox (4) Neuropathy Current Visit: Yes Status: Acute Code(s): G62.9 - POLYNEUROPATHY, UNSPECIFIED SNOMED Code(s): 303986787 Comment: - Increase Gabapentin to 300 mg PO TID Status and Disposition: --Awaiting placement to rehab
[2018-03-31] MEDS: Enoxaparin(*) 40 MG/0.4 ML SYR SUBCUT SCH (20:56)
[2018-04-01] MEDS: Acetaminophen TAB* 325 MG PO PRN ×3 (02:42→20:47)
[2018-04-01] MEDS: Polyethylene Glycol 3350* 17 GM PACKET PO PRN (07:49)
[2018-04-01] MEDS: Gabapentin CAP(*) 300 MG PO SCH (07:49)
[2018-04-01] MEDS: Ibuprofen TAB* 600 MG PO PRN (07:51)
[2018-04-01] MEDS ORDERED: Ketorolac INJ* 30 MG/ML 1 ML VIAL IV PUSH PRN (12:11)
[2018-04-01] MEDS ORDERED: Gabapentin CAP(*) 300 MG PO SCH (12:11)
[2018-04-01] MEDS: Omeprazole CAP* 20 MG PO SCH (12:35)
--- NOTE | 2018-04-01 15:57 | PN ---
Subjective Date of Service: 04/01/18 Interval History: Pt seen and examined. Meds and labs reviewed. ROS: Pt still complains of improving PERRY, still significant peripheral neuropathy and myalgias. The pt denied any dizzinness, F/C, N/V, diarrhea, constipation, throat pain, new skin lesions PHYSICAL EXAM: GEN APPEARANCE: Awake, not in acute distress HEENT: NC/AT, PERRLA, moist oral mucosa, (-) throat erythema NECK: Soft, supple, (-) cervical LAD, (-)JVD HEART: S1S2 WNL, RRR, No MRG CHEST: CTA, BL, GAE, No W/R/R ABD: Soft, ND/NT, NABS 4x Q EXT: No C/C/E SKIN: Warm to touch, No signs of inflammation; pt's BLLE are sensitive to medium touch PSYCH: No active psychosis, hallucinations, depression, SI/HI Family History: Unchanged from Admission Social History: Unchanged from Admission Past Medical History: Unchanged from Admission Objective Active Medications: Acetaminophen (Tylenol Tab*) 650 mg PO Q6H PRN PRN Reason: pain/fever Last Admin: 04/01/18 09:56 Dose: 650 mg Enoxaparin Sodium (Lovenox(*)) 40 mg SUBCUT 2100 SARA Last Admin: 03/31/18 20:56 Dose: 40 mg Gabapentin (Neurontin Cap(*)) 400 mg PO TID SARA Ibuprofen (Motrin Tab*) 600 mg PO Q6H PRN PRN Reason: PAIN Last Admin: 04/01/18 07:51 Dose: 600 mg Ketorolac Tromethamine (Toradol Inj*) 30 mg IV PUSH Q6H PRN PRN Reason: PAIN Stop: 04/03/18 12:10 Last Admin: 04/01/18 12:35 Dose: 30 mg Magnesium Hydroxide (Milk Of Magnesia Liq*) 30 ml PO Q4H PRN PRN Reason: CONSTIPATION Omeprazole (Prilosec Cap*) 20 mg PO DAILY [facility] Last Admin: 04/01/18 12:35 Dose: 20 mg Polyethylene Glycol/Electrolytes (Miralax*) 17 gm PO DAILY PRN PRN Reason: CONSTIPATION Last Admin: 04/01/18 07:49 Dose: 17 gm Vital Signs - 8 hr 05/01/18 05/01/18 08:00 15:36 Respiratory 18 14 Rate Oxygen Devices in Use Now: None Result Diagrams: 03/31/18 06:25 03/31/18 06:25 Additional Lab and Data: Lab Results 03/22/18 03/22/18 03/22/18 Range/Units 14:50 16:04 16:04 WBC 10.5 (3.5-10.8) 10^3/ul RBC 4.91 (4.0-5.4) 10^6/ul Hgb 14.7 (14.0-18.0) g/dl Hct 44 (42-52) % MCV 90 (80-94) fL MCH 30 (27-31) pg MCHC 34 (31-36) g/dl RDW 13 (10.5-15) % Plt Count 265 (150-450) 10^3/ul MPV 8.9 (7.4-10.4) um3 Neut % (Auto) 69.6 (38-83) % Lymph % (Auto) 21.6 L (25-47) % [place] % (Auto) 7.9 H (0-7) % Eos % (Auto) 0.5 (0-6) % Baso % (Auto) 0.4 (0-2) % Absolute Neuts (auto) 7.3 (1.5-7.7) 10^3/ul Absolute Lymphs (auto) 2.3 (1.0-4.8) 10^3/ul Absolute Monos (auto) 0.8 (0-0.8) 10^3/ul Absolute Eos (auto) 0.1 (0-0.6) 10^3/ul Absolute Basos (auto) 0 (0-0.2) 10^3/ul Absolute Nucleated RBC 0 10^3/ul Nucleated RBC % 0.1 ESR 3 (0-14) mm/Hr Sodium 143 (139-145) mmol/L Potassium 4.0 (3.5-5.0) mmol/L Chloride 109 (101-111) mmol/L Carbon Dioxide 23 (22-32) mmol/L Anion Gap 11 (2-11) mmol/L BUN 13 (6-24) mg/dL Creatinine 0.95 (0.67-1.17) mg/dL Est GFR ( Amer) 130.0 (>60) Est GFR (Non-Af Amer) 101.1 (>60) BUN/Creatinine Ratio 13.7 (8-20) Glucose 86 (70-100) mg/dL Lactic Acid (0.5-2.0) mmol/L Calcium 9.7 (8.6-10.3) mg/dL Total Bilirubin 1.20 H (0.2-1.0) mg/dL AST 11 L (13-39) U/L ALT 9 (7-52) U/L Alkaline Phosphatase 57 (34-104) U/L Total Creatine Kinase 102 (10-223) U/L Myoglobin 21.4 (17.4-105.7) ng/mL Troponin I 0.00 (<0.04) ng/mL C-Reactive Protein < 1.00 (< 5.00) mg/L Total Protein 7.2 (6.4-8.9) g/dL Albumin 4.5 (3.2-5.2) g/dL Globulin 2.7 (2-4) g/dL Albumin/Globulin Ratio 1.7 (1-3) Urine Color Urine Appearance Urine pH (5-9) Ur Specific [place] (1.010-1.030) Urine Protein (Negative) Urine Ketones (Negative) Urine Blood (Negative) Urine Nitrate (Negative) Urine Bilirubin (Negative) Urine Urobilinogen (Negative) Ur Leukocyte Esterase (Negative) Urine Glucose (Negative) 03/22/18 03/22/18 Range/Units 16:04 17:32 WBC (3.5-10.8) 10^3/ul RBC (4.0-5.4) 10^6/ul Hgb (14.0-18.0) g/dl Hct (42-52) % MCV (80-94) fL MCH (27-31) pg MCHC (31-36) g/dl RDW (10.5-15) % Plt Count (150-450) 10^3/ul MPV (7.4-10.4) um3 Neut % (Auto) (38-83) % Lymph % (Auto) (25-47) % [place] % (Auto) (0-7) % Eos % (Auto) (0-6) % Baso % (Auto) (0-2) % Absolute Neuts (auto) (1.5-7.7) 10^3/ul Absolute Lymphs (auto) (1.0-4.8) 10^3/ul Absolute Monos (auto) (0-0.8) 10^3/ul Absolute Eos (auto) (0-0.6) 10^3/ul Absolute Basos (auto) (0-0.2) 10^3/ul Absolute Nucleated RBC 10^3/ul Nucleated RBC % ESR (0-14) mm/Hr Sodium (139-145) mmol/L Potassium (3.5-5.0) mmol/L Chloride (101-111) mmol/L Carbon Dioxide (22-32) mmol/L Anion Gap (2-11) mmol/L BUN (6-24) mg/dL Creatinine (0.67-1.17) mg/dL Est GFR ( Amer) (>60) Est GFR (Non-Af Amer) (>60) BUN/Creatinine Ratio (8-20) Glucose (70-100) mg/dL Lactic Acid 1.3 (0.5-2.0) mmol/L Calcium (8.6-10.3) mg/dL Total Bilirubin (0.2-1.0) mg/dL AST (13-39) U/L ALT (7-52) U/L Alkaline Phosphatase (34-104) U/L Total Creatine Kinase (10-223) U/L Myoglobin (17.4-105.7) ng/mL Troponin I (<0.04) ng/mL C-Reactive Protein (< 5.00) mg/L Total Protein (6.4-8.9) g/dL Albumin (3.2-5.2) g/dL Globulin (2-4) g/dL Albumin/Globulin Ratio (1-3) Urine Color Yellow Urine Appearance Clear Urine pH 6.0 (5-9) Ur Specific [place] 1.023 (1.010-1.030) Urine Protein Negative (Negative) Urine Ketones 1+ A (Negative) Urine Blood Negative (Negative) Urine Nitrate Negative (Negative) Urine Bilirubin Negative (Negative) Urine Urobilinogen Negative (Negative) Ur Leukocyte Esterase Negative (Negative) Urine Glucose Negative (Negative) Microbiology and Other Data: Microbiology 03/22/18 22:40 Nasal Screen MRSA (PCR)(DIONISIO) - Final Nasal Mrsa Not Detected Assess/Plan/Problems-Billing Assessment: Mr Chen is a 22yo [place] inmate who presented to ED x2 this week with c/o weakness and tremors after smoking a synthetic substance (?K2). - Patient Problems (1) Toxic encephalopathy Current Visit: Yes Status: Acute Code(s): G92 - TOXIC ENCEPHALOPATHY SNOMED Code(s): 66119222 Comment: --Alert and weak appearing, but looks improved --Likely due to ?K2 ingestion (unknown substance, he thought it was K2) --MRI brain and c-spine were unremarkable --myoclonus is resolved --psych did not believe this is conversion disorder (2) Lower extremity weakness Current Visit: Yes Status: Acute Code(s): R29.898 - OTH SYMPTOMS AND SIGNS INVOLVING THE MUSCULOSKELETAL SYSTEM SNOMED Code(s): 589728940 Comment: --Accompanied by BLLE skin hypersensitivity --Concerning for neuropathy due to K2 use? --Pt encouraged to participate with PT --LP was unremarkable --MRI brain and c-spine unremarkable --worked with PT, requiring a ina for transfers --needs ongoing PT and currently being placed for rehab (3) Neuropathy Current Visit: Yes Status: Acute Code(s): G62.9 - POLYNEUROPATHY, UNSPECIFIED SNOMED Code(s): 520207629 Comment: - Increase Gabapentin to 400 mg PO TID (4) DVT prophylaxis Current Visit: Yes Status: Acute Code(s): ASO3388 - SNOMED Code(s): 895712960 Comment: --Continue lovenox Status and Disposition: --Will be D/C'd to [facility] at 9AM tomorrow
[2018-04-01] MEDS: Gabapentin CAP(*) 400 MG PO SCH (20:47)
[2018-04-01] MEDS: Enoxaparin(*) 40 MG/0.4 ML SYR SUBCUT SCH (20:47)
--- NOTE | 2018-04-02 01:11 | DS ---
CC: Kesha Henao NP * DISCHARGE SUMMARY: DATE OF ADMISSION: DATE OF DISCHARGE: 04/01/18 DISCHARGE DIAGNOSES: 1. 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 2. 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 HISTORY OF PRESENT ILLNESS/HOSPITAL COURSE: The patient is a 22-year-old - [place] gentleman with no documented past medical history, who presented from shelter on 03/22/18 to [facility] after he was noted to be shaking a few days before. He thought he was ingesting K2, but had no idea of what he actually took. He described generalized fatigue and noted several episodes of shaking and weakness and he believes that the shaking is more on the left side. Subsequent evaluation such as brain CT did not show any intracranial mass nor hemorrhage. Neurology, Dr. Ware was also consulted regarding above, who then subsequently suggested a brain MRI along with cervical MRI, which were otherwise unremarkable except for that his MRI of the cervical spine shows multiple degenerative disk disease without evidence of focal protrusion and no evidence of cervical spinal cord abnormality. He was also seen by Psychiatry given initial suspicion of possible conversion disorder , but they did not believe that he has any form of conversion disorder. His peripheral neuropathy was then subsequently treated with gabapentin and his generalized pain only with Tylenol and NSAIDs given his substance abuse history. He was advised that he will need to follow up as an outpatient with Neurology service in about 2 weeks and to appropriately follow up with the PCP within 1 week post DC. He has been placed to [facility] in [place]. REVIEW OF SYSTEMS: The patient mentions some myalgias, hypersensitivity of the skin of his lower extremities and mild headache, which has been improving. Other than this, the rest of the 14-point review of systems such as dizziness, fevers, chills, nausea, vomiting, chest pain, shortness of breath, increased coughing or sputum production, abdominal pain, diarrhea, constipation, pain and/ or increased frequency and urination, throat pain or new skin lesions were otherwise unremarkable. PHYSICAL EXAMINATION: Shows the most recent vital signs of 116/66, temperature of 97.9 degrees Fahrenheit, 64 beats per minute heart rate, 16 per minute respiratory rate. General Appearance: The patient is awake, not in acute distress. HEENT: Normocephalic, atraumatic. PERRLA. Extraocular muscles intact. Negative for icterus. Moist oral mucosa. Negative for throat erythema. Neck is soft, supple with no cervical lymphadenopathy. No JVD. Heart: S1, S2 within normal limits. Regular rate and rhythm. No murmurs, rubs , or gallops. Chest: Clear to auscultation bilaterally. Good air entry. No wheezes, rales, or rhonchi. Abdomen is soft, nondistended, nontender. Normoactive bowel sounds x4. Extremities: No cyanosis, clubbing, or edema with hypersensitive skin on palpation. Psychiatric: No active psychosis, depression, suicidal or homicidal ideations. Skin is warm to touch. TIME SPENT: The total time spent evaluating the patient, reviewing pertinent data and appropriate documentation is greater than 30 minutes. [id number]/CPS #: [id number] MTDD
[2018-04-02 07:55] VITALS: BP 132/55
--- NOTE | 2018-04-02 07:55 | PN ---
Subjective Date of Service: 04/02/18 Interval History: Pt seen and examined. Meds and labs reviewed. ROS: PERRY, myalgias/arthralgias improved. Hypersensitivity stable. Denied dizziness, F/C, N/V, CP, SOB, increased cough, sputum production, abd pain, diarrhea, constipation, dysuria, throat pain, and new skin lesions. The rest of the 14 point ROS are unremarkable. PHYSICAL EXAM: GEN APPEARANCE: Awake, not in acute distress HEENT: NC/AT, PERRLA, moist oral mucosa, (-) throat erythema NECK: Soft, supple, (-) cervical LAD, (-)JVD HEART: S1S2 WNL, RRR, No MRG CHEST: CTA, BL, GAE, No W/R/R ABD: Soft, ND/NT, NABS 4x Q EXT: No C/C/E, skin hypersensitivity of BLLE SKIN: Warm to touch PSYCH: No active psychosis, hallucinations, depression, SI/HI Family History: Unchanged from Admission Social History: Unchanged from Admission Past Medical History: Unchanged from Admission Objective Active Medications: Acetaminophen (Tylenol Tab*) 650 mg PO Q6H PRN PRN Reason: pain/fever Last Admin: 04/01/18 20:47 Dose: 650 mg Enoxaparin Sodium (Lovenox(*)) 40 mg SUBCUT 2100 [facility] Last Admin: 04/01/18 20:47 Dose: 40 mg Gabapentin (Neurontin Cap(*)) 400 mg PO TID [facility] Last Admin: 04/01/18 20:47 Dose: 400 mg Ibuprofen (Motrin Tab*) 600 mg PO Q6H PRN PRN Reason: PAIN Last Admin: 04/01/18 07:51 Dose: 600 mg Ketorolac Tromethamine (Toradol Inj*) 30 mg IV PUSH Q6H PRN PRN Reason: PAIN Stop: 04/03/18 12:10 Last Admin: 04/01/18 12:35 Dose: 30 mg Magnesium Hydroxide (Milk Of Magnesia Liq*) 30 ml PO Q4H PRN PRN Reason: CONSTIPATION Omeprazole (Prilosec Cap*) 20 mg PO DAILY [facility] Last Admin: 04/01/18 12:35 Dose: 20 mg Polyethylene Glycol/Electrolytes (Miralax*) 17 gm PO DAILY PRN PRN Reason: CONSTIPATION Last Admin: 04/01/18 07:49 Dose: 17 gm Vital Signs - 8 hr 04/02/18 04/02/18 03:23 03:45 Temperature 97.5 F Pulse Rate 51 62 Respiratory 16 Rate Blood Pressure 116/40 (mmHg) O2 Sat by Pulse 99 Oximetry Oxygen Devices in Use Now: None Result Diagrams: 03/31/18 06:25 03/31/18 06:25 Additional Lab and Data: Lab Results 03/22/18 03/22/18 03/22/18 Range/Units 14:50 16:04 16:04 WBC 10.5 (3.5-10.8) 10^3/ul RBC 4.91 (4.0-5.4) 10^6/ul Hgb 14.7 (14.0-18.0) g/dl Hct 44 (42-52) % MCV 90 (80-94) fL MCH 30 (27-31) pg MCHC 34 (31-36) g/dl RDW 13 (10.5-15) % Plt Count 265 (150-450) 10^3/ul MPV 8.9 (7.4-10.4) um3 Neut % (Auto) 69.6 (38-83) % Lymph % (Auto) 21.6 L (25-47) % [place] % (Auto) 7.9 H (0-7) % Eos % (Auto) 0.5 (0-6) % Baso % (Auto) 0.4 (0-2) % Absolute Neuts (auto) 7.3 (1.5-7.7) 10^3/ul Absolute Lymphs (auto) 2.3 (1.0-4.8) 10^3/ul Absolute Monos (auto) 0.8 (0-0.8) 10^3/ul Absolute Eos (auto) 0.1 (0-0.6) 10^3/ul Absolute Basos (auto) 0 (0-0.2) 10^3/ul Absolute Nucleated RBC 0 10^3/ul Nucleated RBC % 0.1 ESR 3 (0-14) mm/Hr Sodium 143 (139-145) mmol/L Potassium 4.0 (3.5-5.0) mmol/L Chloride 109 (101-111) mmol/L Carbon Dioxide 23 (22-32) mmol/L Anion Gap 11 (2-11) mmol/L BUN 13 (6-24) mg/dL Creatinine 0.95 (0.67-1.17) mg/dL Est GFR ( Amer) 130.0 (>60) Est GFR (Non-Af Amer) 101.1 (>60) BUN/Creatinine Ratio 13.7 (8-20) Glucose 86 (70-100) mg/dL Lactic Acid (0.5-2.0) mmol/L Calcium 9.7 (8.6-10.3) mg/dL Total Bilirubin 1.20 H (0.2-1.0) mg/dL AST 11 L (13-39) U/L ALT 9 (7-52) U/L Alkaline Phosphatase 57 (34-104) U/L Total Creatine Kinase 102 (10-223) U/L Myoglobin 21.4 (17.4-105.7) ng/mL Troponin I 0.00 (<0.04) ng/mL C-Reactive Protein < 1.00 (< 5.00) mg/L Total Protein 7.2 (6.4-8.9) g/dL Albumin 4.5 (3.2-5.2) g/dL Globulin 2.7 (2-4) g/dL Albumin/Globulin Ratio 1.7 (1-3) Urine Color Urine Appearance Urine pH (5-9) Ur Specific [place] (1.010-1.030) Urine Protein (Negative) Urine Ketones (Negative) Urine Blood (Negative) Urine Nitrate (Negative) Urine Bilirubin (Negative) Urine Urobilinogen (Negative) Ur Leukocyte Esterase (Negative) Urine Glucose (Negative) 03/22/18 03/22/18 Range/Units 16:04 17:32 WBC (3.5-10.8) 10^3/ul RBC (4.0-5.4) 10^6/ul Hgb (14.0-18.0) g/dl Hct (42-52) % MCV (80-94) fL MCH (27-31) pg MCHC (31-36) g/dl RDW (10.5-15) % Plt Count (150-450) 10^3/ul MPV (7.4-10.4) um3 Neut % (Auto) (38-83) % Lymph % (Auto) (25-47) % [place] % (Auto) (0-7) % Eos % (Auto) (0-6) % Baso % (Auto) (0-2) % Absolute Neuts (auto) (1.5-7.7) 10^3/ul Absolute Lymphs (auto) (1.0-4.8) 10^3/ul Absolute Monos (auto) (0-0.8) 10^3/ul Absolute Eos (auto) (0-0.6) 10^3/ul Absolute Basos (auto) (0-0.2) 10^3/ul Absolute Nucleated RBC 10^3/ul Nucleated RBC % ESR (0-14) mm/Hr Sodium (139-145) mmol/L Potassium (3.5-5.0) mmol/L Chloride (101-111) mmol/L Carbon Dioxide (22-32) mmol/L Anion Gap (2-11) mmol/L BUN (6-24) mg/dL Creatinine (0.67-1.17) mg/dL Est GFR ( Amer) (>60) Est GFR (Non-Af Amer) (>60) BUN/Creatinine Ratio (8-20) Glucose (70-100) mg/dL Lactic Acid 1.3 (0.5-2.0) mmol/L Calcium (8.6-10.3) mg/dL Total Bilirubin (0.2-1.0) mg/dL AST (13-39) U/L ALT (7-52) U/L Alkaline Phosphatase (34-104) U/L Total Creatine Kinase (10-223) U/L Myoglobin (17.4-105.7) ng/mL Troponin I (<0.04) ng/mL C-Reactive Protein (< 5.00) mg/L Total Protein (6.4-8.9) g/dL Albumin (3.2-5.2) g/dL Globulin (2-4) g/dL Albumin/Globulin Ratio (1-3) Urine Color Yellow Urine Appearance Clear Urine pH 6.0 (5-9) Ur Specific [place] 1.023 (1.010-1.030) Urine Protein Negative (Negative) Urine Ketones 1+ A (Negative) Urine Blood Negative (Negative) Urine Nitrate Negative (Negative) Urine Bilirubin Negative (Negative) Urine Urobilinogen Negative (Negative) Ur Leukocyte Esterase Negative (Negative) Urine Glucose Negative (Negative) Microbiology and Other Data: Microbiology 03/22/18 22:40 Nasal Screen MRSA (PCR)(DIONIS[facility]) - Final Nasal Mrsa Not Detected Assess/Plan/Problems-Billing Assessment: Mr Chen is a 22yo [place] inmate who presented to ED x2 this week with c/o weakness and tremors after smoking a synthetic substance (?K2). - Patient Problems (1) Toxic encephalopathy Current Visit: Yes Status: Acute Code(s): G92 - TOXIC ENCEPHALOPATHY SNOMED Code(s): 30752295 Comment: --Alert and weak appearing, but looks improved --Likely due to ?K2 ingestion (unknown substance, he thought it was K2) --MRI brain and c-spine were unremarkable --myoclonus is resolved --psych did not believe this is conversion disorder (2) Lower extremity weakness Current Visit: Yes Status: Acute Code(s): R29.898 - OTH SYMPTOMS AND SIGNS INVOLVING THE MUSCULOSKELETAL SYSTEM SNOMED Code(s): 563516967 Comment: --Accompanied by BLLE skin hypersensitivity --Concerning for neuropathy due to K2 use? --Pt encouraged to participate with PT --LP was unremarkable --MRI brain and c-spine unremarkable --worked with PT, requiring a ina for transfers --needs ongoing PT and currently being placed for rehab (3) Neuropathy Current Visit: Yes Status: Acute Code(s): G62.9 - POLYNEUROPATHY, UNSPECIFIED SNOMED Code(s): 061379471 Comment: - Increase Gabapentin to 400 mg PO TID (4) DVT prophylaxis Current Visit: Yes Status: Acute Code(s): MOH0783 - SNOMED Code(s): 465458092 Comment: --Continue lovenox Status and Disposition: --Seen and examined. No change in plans. Please see D/C summary prepared yesterday.
[2018-04-02] MEDS: Gabapentin CAP(*) 400 MG PO SCH (08:06)
[2018-04-02] MEDS: Omeprazole CAP* 20 MG PO SCH (08:06)
[2018-04-02] MEDS: Acetaminophen TAB* 325 MG PO PRN (08:06)
== END 2018-04-02 09:00 | DRG 812 ==
LOC: ED 14:01 → EEVIPCON 21:14 → MED 21:14 → OBSVTOIN 03-23 13:45 → MED 03-27 03:48
PROVIDERS: ADMIT Internal Medicine; ATTEND Student in an Organized Health Care Education/Training Program
DX: T40.7X1A Poisoning by cannabis (derivatives), accidental (unintentional), initial encounter (principal); G92 Toxic encephalopathy; G62.9 Polyneuropathy, unspecified; G25.3 Myoclonus; G25.1 Drug-induced tremor; R53.1 Weakness; F12.10 Cannabis abuse, uncomplicated; M50.30 Other cervical disc degeneration, unspecified cervical region; R56.9 Unspecified convulsions; Z83.3 Family history of diabetes mellitus; Z82.49 Family history of ischemic heart disease and other diseases of the circulatory system; Z56.0 Unemployment, unspecified
CPT/HCPCS: 36415; 70450; 70553; 72156; 80048; 80053; 80307; 81003; 82550; 82945; 83605; 83735; 83874; 84157; 84484; 85025; 85652; 85730; 86140; 86592; 87070; 87205; 87641; 89051; 93005; 95816; 99285; A9270-GY; A9579; G8978-GP-CN; G8979-GP-CH; J1650; J1885; J2060